=== PATIENT | male | born 1965 | race Caucasian/White ===

== ENCOUNTER → 2018-03-12 | Outpatient (CLI) | payer MEDICARE, MEDICAID | LOC: M PLARAD 15:18 | DX: M47.812 Spondylosis without myelopathy or radiculopathy, cervical region (principal) | CPT/HCPCS: 72141 ==

== ENCOUNTER → 2020-05-31 | Outpatient (CLI) | payer MEDICARE, MEDICAID ==
[~2020-05-31] MED LIST: ASPI-264 PO; PANT40TA29 PO; RAMI1CAP22 PO; SIMV40TA20 PO; TRAM50TA2 PO
--- NOTE | 2020-05-31 17:38 | REP ---
INDICATION: OTHER NON SPECIFIC ABNOMAL FINDINGS OF LUNG FIELD. COMPARISON: No prior studies available.. TECHNIQUE: Helical scanning is acquired. 3 mm axial images are generated. Coronal and sagittal MPR and coronal MIP images are generated. FINDINGS: Preliminary digital port crane operator radiograph shows a nodular opacity in the left perihilar region. Lungs are hyperinflated. There is some vascular calcification. No hilar or mediastinal mass or adenopathy is observed. Scattered normal sized mediastinal lymph nodes are seen. The adrenal glands are normal. Visualized upper abdominal structures are unremarkable. No pleural or pericardial effusion is seen. On lung window settings, there is a suspicious spiculated nodule in the left upper lobe perihilar region. This measures 1.8 x 1.9 x 2.3 cm in diameter. It has spiculated margins and abuts the major fissure. There is a perifissural nodule nearby in the left lower lobe however this appears benign. There is a fine pattern of subpleural emphysema and fibrosis in the lung tran bilaterally. No other significant lung nodule is seen. 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 IMPRESSION: Suspicious left upper lobe spiculated nodule. No evidence of adenopathy. COPD changes with the peripheral pattern of subpleural emphysema and fibrosis. Vascular calcification. <Electronically signed by Thad Gill > 05/31/20 [id number]
== END ==
LOC: M RAD 15:36
PROVIDERS: ATTEND Internal Medicine Pulmonary Disease
DX: R91.8 Other nonspecific abnormal finding of lung field (principal); J44.9 Chronic obstructive pulmonary disease, unspecified; J84.10 Pulmonary fibrosis, unspecified

== ENCOUNTER → 2020-06-04 | Day surgery (SDC) | payer MEDICARE, MEDICAID ==
[~2020-06-04] VITALS: Ht 180.3 cm; Wt 117.9 kg
[~2020-06-04] MED LIST changes: +ALBUTEROL SULFATE 2.5 MG/0.5 ML INH NEB SOLN INH ONE; +LIDOCAINE 2% 100MG/5ML SDV (FOR ANES.) As Ordered ONE; +LIDOCAINE 4% INJ 5ML AMP INH ONE; +LR 1,000 ML IV ONE; +MIDAZOLAM INJ 2MG/2ML VIAL (J2250 PER 1MG) As Ordered ONE; +ONDANSETRON 4MG/2ML VIAL As Ordered ONE; +ROCURONIUM BROMIDE 50 MG/5 ML VIAL As Ordered ONE; +dexameTHASONE 4 MG/ML 1ML VIAL (J1100 PER 1MG) As Ordered ONE; +fentaNYL 100 MCG/2 ML INJECTION (J3010) As Ordered ONE; +propofoL 200 MG/20 ML VIAL As Ordered ONE
[2020-06-04 10:25] VITALS: BP 142/70
== END | disposition home or self-care (01) ==
LOC: M SDC 10:16
PROVIDERS: ATTEND Internal Medicine Pulmonary Disease
DX: R91.8 Other nonspecific abnormal finding of lung field (principal); Z53.09 Procedure and treatment not carried out because of other contraindication; Z79.02 Long term (current) use of antithrombotics/antiplatelets

== ENCOUNTER 2020-06-27 08:05 | Day surgery (SDC) | payer MEDICARE, MEDICAID ==
[~2020-06-27] VITALS: Ht 180.3 cm; Wt 118.8 kg
[~2020-06-27 08:05] MED LIST changes: +CLOP75TA2; +IPRA0.00; +LIDOCAINE 1% MDV 20ML VIAL SQ PRN; -LIDOCAINE 2% 100MG/5ML SDV (FOR ANES.) As Ordered ONE; -LIDOCAINE 4% INJ 5ML AMP INH ONE; +LIDOCAINE 4% INJ 5ML AMP NEB ONE; -MIDAZOLAM INJ 2MG/2ML VIAL (J2250 PER 1MG) As Ordered ONE; -ONDANSETRON 4MG/2ML VIAL As Ordered ONE; -ROCURONIUM BROMIDE 50 MG/5 ML VIAL As Ordered ONE; +VENTAER; -dexameTHASONE 4 MG/ML 1ML VIAL (J1100 PER 1MG) As Ordered ONE; -fentaNYL 100 MCG/2 ML INJECTION (J3010) As Ordered ONE; -propofoL 200 MG/20 ML VIAL As Ordered ONE
--- OUTSIDE RECORDS SUMMARY | 2020-06-27 08:12 | CCD ---
Author Author [facility] Organization [facility] Address Unknown Phone Unavailable Care Team Providers Care Investigative Agent Name Role Phone Lore HAIR MD Unavailable Unavailable Lore HAIR MD Unavailable Unavailable Lore HARI MD Unavailable Unavailable Lore HAIR MD Unavailable Unavailable Lore HAIR MD Unavailable Unavailable Nicole SHUKLA MD Unavailable Unavailable Nicole SHUKLA MD Unavailable Unavailable Nicole SHUKLA MD Unavailable Unavailable Nicole SHUKLA MD Unavailable Unavailable Nicole SHUKLA MD Unavailable Unavailable Nicole SHUKLA MD Unavailable Unavailable Nicole SHUKLA MD Unavailable Unavailable Nicole SHUKLA MD Unavailable Unavailable Nicole SHUKLA MD Unavailable Unavailable Nicole SHUKLA MD Unavailable Unavailable Nicole SHUKLA MD Unavailable Unavailable Nicole SHUKLA MD Unavailable Unavailable Nicole SHUKLA MD Unavailable Unavailable Nicole SHUKLA MD Unavailable Unavailable Nicole SHUKLA MD Unavailable Unavailable Nicole SHUKLA MD Unavailable Unavailable Nicole SHUKLA MD Unavailable Unavailable Nicole SHUKLA MD Unavailable Unavailable Nicole SHUKLA MD Unavailable Unavailable Nicole SHUKLA MD Unavailable Unavailable Nicole SHUKLA MD Unavailable Unavailable Nicole SHUKLA MD Unavailable Unavailable Nicole SHUKLA MD Unavailable Unavailable Nicole SHUKLA MD Unavailable Unavailable Nicole SHUKLA MD Unavailable Unavailable Nicole SHUKLA MD Unavailable Unavailable Nicole SHUKLA MD Unavailable Unavailable Nicole SHUKLA MD Unavailable Unavailable Nicole SHUKLA MD Unavailable Unavailable Nicole SHUKLA MD Unavailable Unavailable Nicole SHUKLA MD Unavailable Unavailable Nicole SHUKLA MD Unavailable Unavailable Nicole SHUKLA MD Unavailable Unavailable Nicole SHUKLA MD Unavailable Unavailable Nicole SHUKLA MD Unavailable Unavailable Nicole SHUKLA MD Unavailable Unavailable Nicole SHUKLA MD Unavailable Unavailable Nicole SHUKLA MD Unavailable Unavailable Nicole SHUKLA MD Unavailable Unavailable Nicole SHUKLA MD Unavailable Unavailable Nicole SHUKLA MD Unavailable Unavailable Nicole SHUKLA MD Unavailable Unavailable Nicole SHUKLA MD Unavailable Unavailable Nicole SHUKLA MD Unavailable Unavailable Nicole SHUKLA MD Unavailable Unavailable FOSTER, KISHORE PA Unavailable Unavailable FOSTER, KISHORE PA Unavailable Unavailable FOSTER, KISHORE PA Unavailable Unavailable FOSTER, KISHORE PA Unavailable Unavailable FOSTER, KISHORE PA Unavailable Unavailable FOSTER, KISHORE PA Unavailable Unavailable FOSTER, KISHORE PA Unavailable Unavailable FOSTER, KISHORE PA Unavailable Unavailable FOSTER, KISHORE PA Unavailable Unavailable FOSTER, KISHORE PA Unavailable Unavailable FOSTER, KISHORE PA Unavailable Unavailable FOSTER, KISHORE PA Unavailable Unavailable FOSTER, KISHORE PA Unavailable Unavailable RONNI CHATMAN MD Unavailable Unavailable RONNI CHATMAN MD Unavailable Unavailable RONNI CHATMAN MD Unavailable Unavailable RONNI CHATMAN MD Unavailable Unavailable RONNI CHATMAN MD Unavailable Unavailable RONNI CHATMAN MD Unavailable Unavailable RONNI CHATMAN MD Unavailable Unavailable RONNI CHATMAN MD Unavailable Unavailable RONNI CHATMAN MD Unavailable Unavailable RONNI CHATMAN MD Unavailable Unavailable RONNI CHATMAN MD Unavailable Unavailable RONNI CHATMAN MD Unavailable Unavailable RONNI CHATMAN MD Unavailable Unavailable RONNI CHATMAN MD Unavailable Unavailable RONNI CHATMAN MD Unavailable Unavailable RONNI CHATMAN MD Unavailable Unavailable RONNI CHATMAN MD Unavailable Unavailable LURDESRONNI MD Unavailable Unavailable LURDESRONNI MD Unavailable Unavailable RONNI CHATMAN MD Unavailable Unavailable RONNI CHATMAN MD Unavailable Unavailable RONNI CHATMAN MD Unavailable Unavailable RONNI CHATMAN MD Unavailable Unavailable RONNI CHATMAN MD Unavailable Unavailable RONNI CHATMAN MD Unavailable Unavailable RONNI CHATMAN MD Unavailable Unavailable RONNI CHATMAN MD Unavailable Unavailable RONNI CHATMAN MD Unavailable Unavailable RONNI CHATMAN MD Unavailable Unavailable RONNI CHATMAN MD Unavailable Unavailable RONNI CHATMAN MD Unavailable Unavailable RONNI CHATMAN MD Unavailable Unavailable RONNI CHATMAN MD Unavailable Unavailable LURDESRONNI MD Unavailable Unavailable LURDESRONNI MD Unavailable Unavailable LURDES, RUDOLPH MD Unavailable Unavailable LURDES, RUDOLPH MD Unavailable Unavailable LURDES, RUDOLPH MD Unavailable Unavailable LURDES, RUDOLPH MD Unavailable Unavailable LURDES, RUDOLPH MD Unavailable Unavailable LURDES, RUDOLPH MD Unavailable Unavailable LURDES, RUDOLPH MD Unavailable Unavailable LURDES, RUDOLPH MD Unavailable Unavailable LURDES, RUDOLPH MD Unavailable Unavailable LURDES, RUDOLPH MD Unavailable Unavailable LURDES, RUDOLPH MD Unavailable Unavailable LURDES, RUDOLPH MD Unavailable Unavailable LURDES, RUDOLPH MD Unavailable Unavailable LURDES, RUDOLPH MD Unavailable Unavailable LURDES, RUDOLPH MD Unavailable Unavailable LURDES, RUDOLPH MD Unavailable Unavailable LURDES, RUDOLPH MD Unavailable Unavailable LURDES, RUDOLPH MD Unavailable Unavailable LURDES, RUDOLPH MD Unavailable Unavailable Sorge, C Michi MD Unavailable Unavailable Sorge, C Michi MD Unavailable Unavailable Sorge, C Michi MD Unavailable Unavailable Sorge, C Micih MD Unavailable Unavailable Sorge, C Michi MD Unavailable Unavailable Sorge, C Michi MD Unavailable Unavailable Sorge, C Michi MD Unavailable Unavailable Sorge, C Michi MD Unavailable Unavailable Sorge, C Michi MD Unavailable Unavailable Sorge, C Michi MD Unavailable Unavailable Sorge, C Michi MD Unavailable Unavailable Sorge, C Michi MD Unavailable Unavailable Sorge, C Michi MD Unavailable Unavailable Sorge, C Michi MD Unavailable Unavailable Sorge, C Michi MD Unavailable Unavailable Sorge, C Michi MD Unavailable Unavailable Sorge, C Michi MD Unavailable Unavailable Sorge, C Michi MD Unavailable Unavailable Sorge, C Michi MD Unavailable Unavailable Sorge, C Michi MD Unavailable Unavailable Sorge, C Michi MD Unavailable Unavailable Corona, E Don DO Unavailable Unavailable Corona, E Don DO Unavailable Unavailable Corona, E Don DO Unavailable Unavailable Corona, E Don DO Unavailable Unavailable Corona, E Don DO Unavailable Unavailable Corona, E Don DO Unavailable Unavailable Corona, E Don DO Unavailable Unavailable Corona, E Don DO Unavailable Unavailable Corona, E Don DO Unavailable Unavailable Corona, E Don DO Unavailable Unavailable Corona, E Don DO Unavailable Unavailable Corona, E Don DO Unavailable Unavailable Corona, E Don DO Unavailable Unavailable Corona, E Don DO Unavailable Unavailable Corona, E Don DO Unavailable Unavailable Corona, E Don DO Unavailable Unavailable Corona, E Don DO Unavailable Unavailable Corona, E Don DO Unavailable Unavailable Corona, E Don DO Unavailable Unavailable Corona, E Don DO Unavailable Unavailable Corona, E Don DO Unavailable Unavailable Corona, E Don DO Unavailable Unavailable Corona, E Don DO Unavailable Unavailable SEARS, A FRANK DO Unavailable Unavailable SEARS, A FRANK DO Unavailable Unavailable SEARS, A FRANK DO Unavailable Unavailable SEARS, A FRANK DO Unavailable Unavailable SEARS, A FRANK DO Unavailable Unavailable SEARS, A FRANK DO Unavailable Unavailable SEARS, A FRANK DO Unavailable Unavailable SEARS, A FRANK DO Unavailable Unavailable SEARS, A FRANK DO Unavailable Unavailable SEARS, A FRANK DO Unavailable Unavailable SEARS, A FRANK DO Unavailable Unavailable SEARS, A FRANK DO Unavailable Unavailable SEARS, A FRANK DO Unavailable Unavailable SEARS, A FRANK DO Unavailable Unavailable SEARS, A FRANK DO Unavailable Unavailable SEARS, A FRANK DO Unavailable Unavailable SEARS, A FRANK DO Unavailable Unavailable SEARS, A FRANK DO Unavailable Unavailable SEARS, A FRANK DO Unavailable Unavailable SEARS, A FRANK DO Unavailable Unavailable SEARS, A FRANK DO Unavailable Unavailable SEARS, A FRANK DO Unavailable Unavailable SEARS, A FRANK DO Unavailable Unavailable SEARS, A FRANK DO Unavailable Unavailable SEARS, A FRANK DO Unavailable Unavailable SEARS, A FRANK DO Unavailable Unavailable SEARS, A FRANK DO Unavailable Unavailable SEARS, A FRANK DO Unavailable Unavailable SEARS, A FRANK DO Unavailable Unavailable SEARS, A FRANK DO Unavailable Unavailable SEARS, A FRANK DO Unavailable Unavailable SEARS, A FRANK DO Unavailable Unavailable SEARS, A FRANK DO Unavailable Unavailable SEARS, A FRANK DO Unavailable Unavailable SEARS, A FRANK DO Unavailable Unavailable SEARS, A FRANK DO Unavailable Unavailable SEARS, A FRANK DO Unavailable Unavailable SEARS, A FRANK DO Unavailable Unavailable SEARS, A FRANK DO Unavailable Unavailable SEARS, A FRANK DO Unavailable Unavailable SEARS, A FRANK DO Unavailable Unavailable SEARS, A FRANK DO Unavailable Unavailable SEARS, A FRANK DO Unavailable Unavailable SEARS, A FRANK DO Unavailable Unavailable SEARS, A FRANK DO Unavailable Unavailable DR MD AGUSTINA KAM Unavailable Unavailable Re-disclosure Warning The records that you are about to access may contain information from federally-assisted alcohol or drug abuse programs. If such information is present, then the following federally mandated warning applies: This information has been disclosed to you from records protected by federal confidentiality rules (42 CFR part 2). The federal rules prohibit you from making any further disclosure of this information unless further disclosure is expressly permitted by the written consent of the person to whom it pertains or as otherwise permitted by 42 CFR part 2. A general authorization for the release of medical or other information is NOT sufficient for this purpose. The Federal rules restrict any use of the information to criminally investigate or prosecute any alcohol or drug abuse patient.The records that you are about to access may contain highly sensitive health information, the redisclosure of which is protected by Article 27-F of the [facility] Public Health law. If you continue you may have access to information: Regarding HIV / AIDS; Provided by facilities licensed or operated by the [facility] Office of Mental Health; or Provided by the [facility] Office for People With Developmental Disabilities. If such information is present, then the following [facility] mandated warning applies: This information has been disclosed to you from confidential records which are protected by state law. State law prohibits you from making any further disclosure of this information without the specific written consent of the person to whom it pertains, or as otherwise permitted by law. Any unauthorized further disclosure in violation of state law may result in a fine or long-term sentence or both. A general authorization for the release of medical or other information is NOT sufficient authorization for further disc losure. Allergies and Adverse Reactions Type Description Substance Reaction Status Data Source(s ) Miscellaneous allergy No Known Environmental Allergies No Kn own Environmental Allergies [facility] l Miscellaneous allergy No Known Food Allergies No Known Food Allergies [facility] Drug allergy CYCLOBENZAPRINE CYCLOBENZAPRINE BLUR VISION MODERATE [facility] Miscellaneous allergy No Known Drug Allergies No Known Drug Allergies [facility] Encounters Encounter Providers Location Date Indications Data Source(s ) Outpatient Attender: NONI Calderon DAdmitter: NONI HAIR MDConsultant: DR CAROLINA KAM 008 06/22/2020 10:32:00 AM EST - 06/22/2020 10:32:00 AM EST Screening [facility] Screening Patient discharged. Outpatient Attender: RONNI CHATMAN MDConsultant: RONNI Gloria JP-SJP 06/18/2020 08:49:47 AM EST - 06/18/2020 11:50:[address] [facility] Outpatient Referrer: RONNI [email or web address].[email or web address] 06/18/2020 12:00:00 AM EST [facility] Outpatient Attender: FRANK TURNER DOAdmit ter: FRANK TURNER DOConsultant: DR CAROLINA KAM 008 05/30/2020 01:34:00 PM EST - 05/30/2020 01:34:00 PM EST Screening test [facility] Screening test Outpatient Attender: Michi De La Rosa mitter: Michi Martinez MDReferrer: Michi Martinez MDConsultant: DR CAROLINA KAM 05/23/2020 08:04:00 A M EST - 05/23/2020 08:30:00 AM EST Health check up [facility] Health check up Patient discharged. Outpatient Attender: FRANK Edwards/Chaparrita/Andres/Manny 05/21/2020 12:00:00 PM EST [facility] Emergency Attender: KISHORE HUTCHISON BRANDON ttender: DR FIGUEROA TRANAdmitter: KISHORE HUTCHISON PAReferrer: KISHORE HUTCHISON PAConsultant: DR CAROLINA KAM [id number] 05/11/2020 04:36:00 PM EST - 05/11/2020 07:30:00 PM EST PATIENT STATES HE THINKS HE'S HAVING A S [facility] PATIENT STATES HE THINKS HE'S HAVING A S Patient discharged. Outpatient Attender: Michi De La Rosa mitter: Michi Martinez MDConsultant: DR CAROLINA KAM 008 05/03/2020 10:20:00 AM EST - 05/03/2020 10:20:00 AM EST Radiological examination [facility] Radiological examination Outpatient Attender: Michi De La Rosa mitter: Michi Martinez MDReferrer: Michi Martinez MDConsultant: DR CAROLINA KAM 008 04/30/2020 02:13:00 P M EST - 04/30/2020 02:13:00 PM EST Lab test [facility] Lab test Outpatient Attender: Michi De La Rosa mitter: Michi Martinez MDReferrer: Michi Martinez MDConsultant: DR CAROLINA KAM [id number] 04/30/2020 12:58:00 P M EST - 04/30/2020 01:40:00 PM EST Health check up [facility] Health check up Patient discharged. Outpatient Attender: Don Walton mitter: Don Jeter DOReferrer: Don Jeter DOConsultant: REGINA SHUKLA MD 06/30/2019 09:08:0 0 AM EST - 06/30/2019 09:50:00 AM EST Current use of medication [facility] Current use of medication Patient discharged. Outpatient Attender: NONI Calderon DAdmitter: NONI HAIR MDConsultant: DR CAROLINA KAM 06/15/2000 02:26:00 PM EST Screening test [facility] Screening test Admission cancelled. Disregard status an d admitted date. Outpatient Attender: REGINA SHUKLA MDAdmi tter: REGINA SHUKLA MDReferrer: REGINA SHUKLA MD 06/15/1999 01:42:00 PM EST [facility] Medications Medication Brand Name Start Date Product Form Dose Route Admi nistrative Instructions Pharmacy Instructions Status Indications Reaction Description Data Source(s) Albuterol 0.833 MG/ML / Ipratropium Brom orlin 0.167 MG/ML Inhalant Solution ipratropium-albuterol (DUO-NEB) 0.5-2.5 mg/mL nebulizer ipratropium-albuterol (DUO-NEB) 0.5-2.5 mg/mL nebulizer 06/11/2020 12:00:00 AM EST active USE ONE VIAL IN THE NEBULIZER EVERY 6 HOURS NEEDED [facility] albuterol (PROVENTIL HFA;VENTOLIN HFA) 108 (90 Base) M CG/ACT inhaler 4880-9094-20 06/11/2020 12:00:00 AM EST activ e INHALE 2 PUFFS BY MOUTH EVERY FOUR HOURS NEEDED [facility] Metoprolol Tartrate 25 MG Oral Tablet me toprolol tartrate (LOPRESSOR) 25 MG tablet metoprolol tartrate (LOPRESSOR) 25 MG tablet 06/05/2020 12:0 0:00 AM EST 0.5 mg Oral active Take 0.5 mg by m outh 2 (two) times a day [facility] clopidogrel 75 MG Oral Tablet clopidogrel (PLAVIX) 75 MG tablet clopidogrel (PLAVIX) 75 MG tablet 06/04/2020 12:00:00 AM EST 75 mg Oral active Take 75 mg by mouth daily [facility] Ramipril 2.5 MG Oral Capsule ramipril (ALTACE) 2.5 MG capsule ramipril (ALTACE) 2.5 MG capsule 06/04/2020 12:00:00 AM EST 2.5 mg Oral act jack Take 2.5 mg by mouth daily [facility] Simvastatin 80 MG Oral Tablet simvastatin (ZOCOR) 80 M G tablet simvastatin (ZOCOR) 80 MG tablet 06/04/2020 12:00:00 AM EST 80 mg Oral active Take 80 mg by mouth [facility] pantoprazole 40 MG Delayed Release Oral Tablet pantoprazole (PROTONIX) 40 MG tablet pantoprazole (PROTONIX) 40 MG tablet 05/16/2020 12:00:00 AM EST 40 mg Oral active Take 40 mg by mouth daily [facility] pantoprazole 40 MG Delayed Release Oral Tablet [Protonix] Protonix 40MG Oral Tablet, Enteric Coated Protonix 40MG Oral Tablet, Enteric Coated 05/16/2020 12:00:00 AM EST 1 TABLET ORAL active Protonix 40MG Oral Tablet, Enteric Coated 05/16/2020 Unknown ORAL DAILY 1 TABLET [id number] [facility] pantoprazole 40 MG Delayed Release Oral Tablet [Protonix] Protonix 40MG Oral Tablet, Enteric Coated Protonix 40MG Oral Tablet, Enteric Coated 05/16/2020 12:00:00 AM EST 1 TABLET ORAL active Protonix 40MG Oral Tablet, Enteric Coated 05/16/2020 Unknown ORAL DAILY 1 TABLET [id number] [facility] Referral 05/07/2020 12:00:00 AM EST 1 TABLET ORAL activ e Referral 05/07/2020 Unknown ORAL 1 TABLET [facility] Referral 05/07/2020 12:00:00 AM EST 1 TABLET ORAL activ e Referral 05/07/2020 Unknown ORAL 1 TABLET [facility] CT of chest 05/02/2020 12:00:00 AM EST [address] of chest 05/02/2020 Unknown ORAL 1 TABLET [facility] Cholecalciferol 2000 UNT Oral Capsule Vi tamin D 2000 IU Oral Capsule, Liquid Filled Vitamin D 2000 IU Oral Capsule, Liquid Filled 05/02/2020 12: 00:00 AM EST 1 CAPSULE BY MOUTH active Vitamin D 200 0 IU Oral Capsule, Liquid Filled 05/02/2020 Unknown BY MOUTH 1 CAPSULE [id number] [facility] Cholecalciferol 2000 UNT Oral Capsule Vi tamin D 2000 IU Oral Capsule, Liquid Filled Vitamin D 2000 IU Oral Capsule, Liquid Filled 05/02/2020 12: 00:00 AM EST 1 CAPSULE BY MOUTH active Vitamin D 200 0 IU Oral Capsule, Liquid Filled 05/02/2020 Unknown BY MOUTH 1 CAPSULE [id number] [facility] 05/02/2020 12:00:00 AM EST [address] [facility] 05/02/2020 [facility] 2000 UNT Oral Capsule Vi tamin D 2000 IU Oral Capsule, Liquid Filled Vitamin D 2000 IU Oral Capsule, Liquid Filled 05/02/2020 12: 00:00 AM EST 1 CAPSULE BY MOUTH active Vitamin D 200 0 IU Oral Capsule, Liquid Filled 05/02/2020 Unknown BY MOUTH 1 CAPSULE [id number] [facility] CT of chest 05/02/2020 12:00:00 AM EST [address] of chest 05/02/2020 Unknown ORAL 1 TABLET [facility] Clotrimazole 10 MG/ML Topical Cream Clotrimazole 1% To pical application Cream Clotrimazole 1% Topical application Cream 04/30/2020 12:00:00 AM EST 1 pea sized TOPICAL active Clotrimazole 1% Topical application Cream 04/30/2020 Unknown TOPICAL 1 pea sized [id number] [facility] tizanidine 4 MG Oral Tablet tiZANidine HCl 4MG Oral Ta blet tiZANidine HCl 4MG Oral Tablet 04/30/2020 12:00:00 AM EST 1 TABLET BY MOUTH ac tive tiZANidine HCl 4MG Oral Tablet 04/30/2020 Unknown BY MOUTH 1 TABLET [id number] [facility] tramadol hydrochloride 50 MG Oral Tablet traMADol (ULT TITI) 50 MG tablet traMADol (ULTRAM) 50 MG tablet 04/30/2020 12:00:00 AM EST 50 mg Oral active Take 50 mg by mouth as needed [facility] Clotrimazole 10 MG/ML Topical Cream Clotrimazole 1% To pical application Cream Clotrimazole 1% Topical application Cream 04/30/2020 12:00:00 AM EST 1 pea sized TOPICAL active Clotrimazole 1% Topical application Cream 04/30/2020 Unknown TOPICAL 1 pea sized 607303 [facility] tizanidine 4 MG Oral Tablet tiZANidine HCl 4MG Oral Ta blet tiZANidine HCl 4MG Oral Tablet 04/30/2020 12:00:00 AM EST 1 TABLET BY MOUTH ac tive tiZANidine HCl 4MG Oral Tablet 04/30/2020 Unknown BY MOUTH 1 TABLET [id number] [facility] tizanidine 4 MG Oral Tablet tiZANidine HCl 4MG Oral Ta blet tiZANidine HCl 4MG Oral Tablet 04/30/2020 12:00:00 AM EST 1 TABLET BY MOUTH ac tive tiZANidine HCl 4MG Oral Tablet 04/30/2020 Unknown BY MOUTH 1 TABLET 425402 [facility] Clotrimazole 10 MG/ML Topical Cream Clotrimazole 1% To pical application Cream Clotrimazole 1% Topical application Cream 04/30/2020 12:00:00 AM EST 1 pea sized TOPICAL active Clotrimazole 1% Topical application Cream 04/30/2020 Unknown TOPICAL 1 pea sized [id number] [facility] tramadol hydrochloride 50 MG Oral Tablet traMADol HCl 50MG Oral Tablet traMADol HCl 50MG Oral Tablet 04/30/2020 12:00:00 AM EST 1 TABLET BY MOUTH active traMADol HCl 50MG Oral Tablet 04/30/2020 Unknown BY MOUTH 1 TABLET [id number] [facility] tramadol hydrochloride 50 MG Oral Tablet traMADol HCl 50MG Oral Tablet traMADol HCl 50MG Oral Tablet 04/30/2020 12:00:00 AM EST 1 TABLET BY MOUTH active traMADol HCl 50MG Oral Tablet 04/30/2020 Unknown BY MOUTH 1 TABLET [id number] [facility] tramadol hydrochloride 50 MG Oral Tablet traMADol HCl 50MG Oral Tablet traMADol HCl 50MG Oral Tablet 04/30/2020 12:00:00 AM EST 1 TABLET BY MOUTH active traMADol HCl 50MG Oral Tablet 04/30/2020 Unknown BY MOUTH 1 TABLET [id number] [facility] 200 ACTUAT Albuterol 0.09 MG/ACTUAT Mete red Dose Inhaler [ProAir] ProAir HFA 0.09MG/1Actuation Inhalation Suspension ProAir HFA 0.09MG/1Actuation Inhalation Suspension 04/18/2020 12:00:00 AM EST 2 PUFFS INHALATION ac tive ProAir HFA 0.09MG/1Actuation Inhalation Suspension 04/18/2020 Unknown INHALATION NEEDED EVERY 4 HR 2 PUFFS [id number] [facility] 200 ACTUAT Albuterol 0.09 MG/ACTUAT Mete red Dose Inhaler [ProAir] ProAir HFA 0.09MG/1Actuation Inhalation Suspension ProAir HFA 0.09MG/1Actuation Inhalation Suspension 04/18/2020 12:00:00 AM EST 2 PUFFS INHALATION ac tive ProAir HFA 0.09MG/1Actuation Inhalation Suspension 04/18/2020 Unknown INHALATION NEEDED EVERY 4 HR 2 PUFFS [id number] [facility] 200 ACTUAT Albuterol 0.09 MG/ACTUAT Mete red Dose Inhaler [ProAir] ProAir HFA 0.09MG/1Actuation Inhalation Suspension ProAir HFA 0.09MG/1Actuation Inhalation Suspension 04/18/2020 12:00:00 AM EST 2 PUFFS INHALATION ac tive ProAir HFA 0.09MG/1Actuation Inhalation Suspension 04/18/2020 Unknown INHALATION NEEDED EVERY 4 HR 2 PUFFS [id number] [facility] Simvastatin 80 MG Oral Tablet Simvastatin 80MG Oral Ta blet Simvastatin 80MG Oral Tablet 03/05/2020 12:00:00 AM EDT 1 TABLET ORAL active Simvastatin 80MG Oral Tablet 03/05/2020 Unknown ORAL AT BEDTIME 1 TABLET [id number] [facility] Simvastatin 80 MG Oral Tablet Simvastatin 80MG Oral Ta blet Simvastatin 80MG Oral Tablet 03/05/2020 12:00:00 AM EDT 1 TABLET ORAL active Simvastatin 80MG Oral Tablet 03/05/2020 Unknown ORAL AT BEDTIME 1 TABLET [id number] [facility] clopidogrel 75 MG Oral Tablet Clopidogrel 75MG Oral Ta blet Clopidogrel 75MG Oral Tablet 03/05/2020 12:00:00 AM EDT 1 TABLET ORAL active Clopidogrel 75MG Oral Tablet 03/05/2020 Unknown ORAL DAILY 1 TABLET [id number] [facility] Ramipril 2.5 MG Oral Capsule Ramipril 2.5MG Oral Capsu le Ramipril 2.5MG Oral Capsule 03/05/2020 12:00:00 AM EDT 1 CAPSULE ORAL active Ramipril 2.5MG Oral Capsule 03/05/2020 Unknown ORAL DAILY 1 [facility]SULE 277151 [facility] MG Oral Tablet Clopidogrel 75MG Oral Ta blet Clopidogrel 75MG Oral Tablet 03/05/2020 12:00:00 AM EDT 1 TABLET ORAL active Clopidogrel 75MG Oral Tablet 03/05/2020 Unknown ORAL DAILY 1 TABLET [id number] [facility] Ramipril 2.5 MG Oral Capsule Ramipril 2.5MG Oral Capsu le Ramipril 2.5MG Oral Capsule 03/05/2020 12:00:00 AM EDT 1 CAPSULE ORAL active Ramipril 2.5MG Oral Capsule 03/05/2020 Unknown ORAL DAILY 1 CAPSULE [id number] [facility] Ramipril 2.5 MG Oral Capsule Ramipril 2.5MG Oral Capsu le Ramipril 2.5MG Oral Capsule 03/05/2020 12:00:00 AM EDT 1 CAPSULE ORAL active Ramipril 2.5MG Oral Capsule 03/05/2020 Unknown ORAL DAILY 1 CAPSULE [id number] [facility] clopidogrel 75 MG Oral Tablet Clopidogrel 75MG Oral Ta blet Clopidogrel 75MG Oral Tablet 03/05/2020 12:00:00 AM EDT 1 TABLET ORAL active Clopidogrel 75MG Oral Tablet 03/05/2020 Unknown ORAL DAILY 1 TABLET [id number] [facility] Simvastatin 80 MG Oral Tablet Simvastatin 80MG Oral Ta blet Simvastatin 80MG Oral Tablet 03/05/2020 12:00:00 AM EDT 1 TABLET ORAL active Simvastatin 80MG Oral Tablet 03/05/2020 Unknown ORAL AT BEDTIME 1 TABLET [id number] [facility] Albuterol 0.833 MG/ML / Ipratropium Brom orlin 0.167 MG/ML Inhalant Solution Ipratropium [place]-Albuterol Sulfate 0.5MG/3ML-3MG/3ML Inhalation Solution Ipratropium [place]-Albuterol Sulfate 0.5MG/3ML-3MG/3ML Inhalation Solution 01/27/2020 12:00:00 AM EDT 1 nebule INHALATION active Ipratropium [place]-Albuterol Sulfate 0.5MG/3ML-3MG/3ML Inhalation Solution 01/27/2020 Unknown INHALATION NEEDED EVERY 6 HR 1 nebule [id number] [facility] Albuterol 0.833 MG/ML / Ipratropium Brom orlin 0.167 MG/ML Inhalant Solution Ipratropium [place]-Albuterol Sulfate 0.5MG/3ML-3MG/3ML Inhalation Solution Ipratropium [place]-Albuterol Sulfate 0.5MG/3ML-3MG/3ML Inhalation Solution 01/27/2020 12:00:00 AM EDT 1 nebule INHALATION active Ipratropium [place]-Albuterol Sulfate 0.5MG/3ML-3MG/3ML Inhalation Solution 01/27/2020 Unknown INHALATION NEEDED EVERY 6 HR 1 nebule [id number] [facility] Albuterol 0.833 MG/ML / Ipratropium Brom orlin 0.167 MG/ML Inhalant Solution Ipratropium [place]-Albuterol Sulfate 0.5MG/3ML-3MG/3ML Inhalation Solution Ipratropium [place]-Albuterol Sulfate 0.5MG/3ML-3MG/3ML Inhalation Solution 01/27/2020 12:00:00 AM EDT 1 nebule INHALATION active Ipratropium [place]-Albuterol Sulfate 0.5MG/3ML-3MG/3ML Inhalation Solution 01/27/2020 Unknown INHALATION NEEDED EVERY 6 HR 1 nebule [id number] [facility] pantoprazole 40 MG Delayed Release Oral Tablet [Protonix] Protonix 40MG Oral Tablet, Enteric Coated Protonix 40MG Oral Tablet, Enteric Coated 11/30/2019 12:00:00 AM EDT 1 TABLET ORAL active Protonix 40MG Oral Tablet, Enteric Coated 11/30/2019 Unknown ORAL DAILY 1 TABLET [id number] [facility] Metoprolol Tartrate 25 MG Oral Tablet Metoprolol Tartr ate 25MG Oral Tablet Metoprolol Tartrate 25MG Oral Tablet 08/30/2019 12:00:00 AM EDT 0 T ABLET ORAL active Metoprolol Tartrate 25MG Oral Tablet Unknown ORAL TWICE A DAY 239409 RxNorm Yovani Katz [facility] spital Metoprolol Tartrate 25 MG Oral Tablet Metoprolol Tartr ate 25MG Oral Tablet Metoprolol Tartrate 25MG Oral Tablet 08/30/2019 12:00:00 AM EDT 0 T ABLET ORAL active Metoprolol Tartrate 25MG Oral Tablet Unknown ORAL TWICE A DAY 123171 RxNorm Yovani Katz [facility] spital Metoprolol Tartrate 25 MG Oral Tablet Metoprolol Tartr ate 25MG Oral Tablet Metoprolol Tartrate 25MG Oral Tablet 08/30/2019 12:00:00 AM EDT 0 T ABLET ORAL active Metoprolol Tartrate 25MG Oral Tablet Unknown ORAL TWICE A DAY [id number] RxNorm Yovani Abdul spital Insurance Providers Payer name Policy type / Coverage type Policy ID Covered republican ID Covered republican's relationship to fung Policy Fung Plan Information EMEDNY [id number] SP [id number] MEDICARE [id number] SP [id number] MEDICARE-OP [id number] undefined [id number] MEDICAID [facility]-OP [id number] undefined [id number] MEDICARE-CLINIC [id number] undefined [id number] MEDICAID [facility] [id number] undef ined [id number] MEDICARE [id number] Kayleigh [id number] R86 MEDICARE [id number] MEDICAID -RECURRING [id number] u ndefined [id number] MEDICAID [id number] MEDICARE [id number] S [id number] MEDICARE -RECURRING [id number] undefined [id number] MEDICARE-CLINIC [id number] undefined [id number] MEDICAID [id number] SP [id number] MEDICARE [id number] SP [id number] MEDICAID [id number] SP [id number] MEDICAID -PHYSICIAN [id number] MEDICAID [id number] 18 [id number] MEDICARE PART A [facility] [id number] 18 [id number] Medicaid Commercial [id number] Self [id number] Medicare Part A [place] Primary [id number] Self [id number] MEDICARE-OP [id number] undefined [id number] MEDICARE [id number] SP [id number] A Problems, Conditions, and Diagnoses Code Display Name Description Problem Type Effective Dates Data Source(s) K21.9 GERD (gastroesophageal reflux disease) G ERD (gastroesophageal reflux disease) [id number] 06/18/2020 12:00:00 AM EST [facility] Z01.818 Preop examination Preop examination [id number] 06/18/2020 12:00:00 AM [facility] [id number] Solitary nodule of lung Solitary nodule of lung Proble m 05/21/2020 12:00:00 AM EST [facility] ([facility], ) Idiopathic pulmonary fibrosis Idiopathic pulmonary fib rosis Problem 05/21/2020 12:00:00 AM EST [facility] ([facility], ) Nicotine dependence, cigarettes, with ot her nicotine-induced disorders Nicotine dependence, cigarettes, with other nicotine-induced disorders Problem 05/21/2020 12:00:00 AM EST [facility] ([facility], ) [id number] Ex-smoker Ex-smoker Problem 05/21/2020 12:00:00 AM ES T [facility] ([facility], ) [id number] Abnormal findings on diagnostic imaging of lung Abnormal findings on diagnostic imaging of lung Problem 05/21/2020 12:00:00 AM EST [facility] ([facility], ) [id number] Encounter for observation fo r suspected exposure to other biological agents ruled out Encounter for observation for suspected exposure to other biological agents ruled out Diagnosis 06/22/2020 10:32:00 AM EST [facility] R06.00 Dyspnea, unspecified Dyspnea, unspecified Diagnosis 06/18/2020 08:49:47 AM EST [facility] K21.9 Gastro-esophageal reflux disease without esophagitis Gastro-esophageal reflux disease without Diagnosis 06/18/2020 08:49:47 AM EST [facility] E66.9 Obesity, unspecified Obesity, unspecified Diagnosis 06/18/2020 08:49:47 AM [facility] J44.9 Chronic obstructive pulmonary disease, u nspecified Chronic obstructive pulmonary disease, u Diagnosis 06/18/2020 08:49:47 AM [facility] I10 Essential (primary) hypertension Essential (primary) h ypertension Diagnosis 06/18/2020 08:49:47 AM EST [facility] E78.5 Hyperlipidemia, unspecified Hyperlipidemia, unspecifie d Diagnosis 06/18/2020 08:49:47 AM [facility] I25.10 Atherosclerotic heart diseas e of [place] coronary artery without angina pectoris Atherosclerotic heart disease of [place] Diagnosis 06/18/2020 08:49:47 AM [facility] Z01.818 Encounter for other preprocedural examin ation Encounter for other preprocedural examin Diagnosis 06/18/2020 08:49:47 AM [facility] E785 Hyperlipidemia, unspecified Hyperlipidemia, unspecifie d Diagnosis 05/23/2020 08:04:00 AM [facility] I10 Essential (primary) hypertension Essential (primary) h ypertension Diagnosis 05/23/2020 08:04:00 AM [facility] R911 Solitary pulmonary nodule Solitary pulmonary nodule Di agnosis 05/23/2020 08:04:00 AM [facility] I2510 Atherosclerotic heart diseas e of [place]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 Diagnosis 05/23/2020 08:04:00 AM [facility] R079 Chest pain, unspecified Chest pain, unspecified Diagno sis 05/23/2020 08:04:00 AM [facility] S53602 Left upper quadrant abdominal tenderness Left upper quadrant abdominal tenderness Diagnosis 05/23/2020 08:04:00 AM [facility] 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 Diagnosis 05/11/2020 02:07:00 PM [facility] R202 Paresthesia of skin Paresthesia of skin Diagnosis 1 07/11/2019 02:07:00 PM [facility] M4727 Other spondylosis with radiculopathy, sunday mbosacral region Other spondylosis with radiculopathy, lumbosacral region Diagnosis 05/11/2020 02:07:00 PM [facility] M4722 Other spondylosis with radiculopathy, ce rvical region Other spondylosis with radiculopathy, cervical region Diagnosis 05/11/2020 02:07:[address] [facility] R531 Weakness Weakness Diagnosis 05/11/2020 02:07:00 PM [facility] Z125 Encounter for screening for malignant ne oplasm of prostate Encounter for screening for malignant neoplasm of prostate Diagnosis 0 02:13:00 PM [facility] M130 Polyarthritis, unspecified Polyarthritis, unspecified Diagnosis 04/30/2020 02:13:00 PM [facility] Z1389 Encounter for screening for other disord er Encounter for screening for other disorder Diagnosis 04/30/2020 12:58:00 PM [facility] J449 Chronic obstructive pulmonary disease, u nspecified Chronic obstructive pulmonary disease, unspecified Diagnosis 04/30/2020 12:58:00 PM [facility] P98849 Pain in left shoulder Pain in left shoulder Diagnosis 04/30/2020 12:58:00 PM [facility] R0789 Other chest pain Other chest pain Diagnosis 04/30/2020 12 :58:00 PM [facility] R0789 R0789 Diagnosis 04/30/2020 12:58:00 PM [facility] F1210 Cannabis abuse, uncomplicated Cannabis abuse, uncompli cated Diagnosis 06/30/2019 09:08:00 AM [facility] G4700 Insomnia, unspecified Insomnia, unspecified Diagnosis 06/30/2019 09:08:00 AM [facility] F4323 Adjustment disorder with mixed anxiety a nd depressed mood Adjustment disorder with mixed anxiety and depressed mood Diagnosis 020 09:08:00 AM [facility] J0190 Acute sinusitis, unspecified Acute sinusitis, unspecif ied Diagnosis 06/30/2019 09:08:00 AM [facility] Surgeries/Procedures Procedure Description Date Indications Data Source(s) ECG ROUTINE ECG W/LEAST 12 LDS W/I&R POCT AMB EKG Routine 06/18/2020 10:24 AM EST Preop examination Coronary artery disease involving [place] heart without angina pectoris, unspecified vessel or lesion type Benign essential hypertension 06/18/2020 03:24:00 PM EST Kenny ign essential hypertensionCoronary artery disease involving [place] heart without angina pectoris, unspecified vessel or lesion typePreop examination [facility] Benign essential hypertension Coronary artery disease involving [place] heart without angina pectoris, unspecified vessel or lesion type Preop examination Spirometry 05/21/2020 12:00:00 AM EST Yumiko MELONY ([facility], ) Results ID Date Data Source [id number] 06/22/2020 11:00:00 AM EST [facility] Name Value Range Interpretation Code Description Data Nataly rce(s) Supporting Document(s) SARS coronavirus 2 RNA Not Detected [facility] This lab was ordered by [facility] and reported by [facility]. ID Date Data Source [id number] 06/22/2020 11:00:00 AM EST [facility] Name Value Range Interpretation Code Description Data Nataly rce(s) Supporting Document(s) [facility] _S[facility]V2 [id number], NAAReport ed: 06/23/2020 20:05 Status=F RESULT FLAG RANGE UNITS SC --SARS-CoV-2, ANGELLA Not Detected Not Detected [facility] 06/23/20.2005.rfl.COMPLETE.LCTRThis nucleic acid amplification test was developed and its performancecharacteristics determined by [employer]. Nucleic acidamplification tests include PCR and TMA. This test has not been FDAcleared or approved. This test has been authorized by FDA under anEmergency Use Authorization (EUA). This test is only authorized forthe duration of time the declaration that circumstances existjustifying the authorization of the emergency use of in vitrodiagnostic tests for detection of SARS-CoV-2 virus and/or diagnosisof COVID-19 infection under section 564(b)(1) of the Act, 21 U. S.C.360bbb-3(b) (1), unless the authorization is terminated or revokedsooner.When diagnostic testing is negative, the possibility of a falsenegative result should be considered in the context of a patient'srecent exposures and the presence of clinical signs and symptomsconsistent with COVID- 19. An individual without symptoms of COVID-19and who is not shedding SARS-CoV-2 virus would expect to have anegative (not detected) result in this assay.NO MATCH FOUND IN SITE CODE REF TABLE FOR [facility] ID Date Data Source [id number] 06/18/2020 09:54:10 PM EST [facility] Name Value Range Interpretation Code Description Data Nataly rce(s) Supporting Document(s) &PDF [facility] ADUXFd2gGlWIWhAq56/YJTceJETdl0AlVHvxUAp7DOefAYJeG5GcaOgxHGDUC8LEY7XGM3ygEsGEYeuy 0b3 [file] 2Ti/xTTd1TE3lpUYf2GGo4/computer operations supervisor/QT8XGUTKSzxFADwY VEJ75CbPLKqUWsDcCMTmEyVP+rZs1CXRLIrDFxERlEZwuYW2CQhe3Y3/WI/lhytT6PofwSkDSpiJzGW+ wD5O6yBwr5bfX2EmFMluN7W12vSwaskK2tzuK8l2fmXNnMyL2SCyQ46KUpDRvE+D2/g62Ka1VdGNTJvG AtwQQYUxjXVco8J9s7ay80j69ABeY6MPXfkv0a4q9P 6ksP9P70QzjL1SPXoinwU7vTgG8UQNx98Aax4EpEzlOg8gVCoe749Y3pIcFGAd9JvFLN+qPEyWHpxhGI ZhGMYK+QhGBUh0LZgfvmTimLYvWK4WOyYkAA7ukn9CMfKgTILmDmmZJfa8CBlhDT2XcDWgK8rDZzciZ8 GqM7UssCobHI3PgVDvGQ1YYD0aP9xzRoWpPch4h8Fq qnZphVQfqyEwxKI9L0LlaH5iG6ZbI9MpLJI5cSTsE9OihF7HzEM3zKYuUBSwVHBwR1j4BRP6XQ5QDO7h eHmtTeN2Xs1MdBx6SEEuOc7OiPC4FTZxD86sKT6STz7+XXkddKFgAV1ERtaA1A85GKXZHz6oIlgeUSxy dAQOCBygkwMCAgdIEKATAQEBAYEDAiRGJwcEBASWCJ [file] ICAgICAgICAgICAgICAgICAgICAgICAgICAgICAgICAgICAgICAgICAgICAgICAgICAgICAgICAgICAg ICAgICAgICAgICAgICAgICAgICAgICAgICAgICAgIA 0KICAgICAgICAgICAgICAgICAgICAgICAgICAgICAgICAgICAgICAgICAgICAgICAgICAgICAgICAgIC XbKHEqDXNlMXEhVIRsUFMwOYMhMEMcOJDmFOGwNBDcNPQjUZLpOLHrMH1WFPFaJPXuYFJsROXvHQLfKW AgICAgICAgICAgICAgICAgICAgICAgICAgICAgICAg VXSgTKErZDNaRVQgFBCoMJLfJLUhMPStKCHjCCGzSNHsQZZrMFWcZWKsIOEoFRFmLUVhRB4BMNItFIQb ICAgICAgICAgICAgICAgICAgICAgICAgICAgICAgICAgICAgICAgICAgICAgICAgICAgICAgICAgICAg ICAgICAgICAgICAgICAgICAgICAgICAgICAgICAgIC BrOA6ITJJbTYOkLQJfOXUyYHFuQBIaEYWhKQQcYIUfTAQkWMWeXTUsWINgLEJbMSLeWJVkLZLpCUGfSG ViDIWjFTNaXXQaKVArFTHxRSKaBFYnJEPvWOWbLDStKJApSBBjXZAaOFTfYL2UCWQlGFGtDBAxNOBzYL AgICAgICAgICAgICAgICAgICAgICAgICAgICAgICAg ENKvDRYvBSUwVYZnIIUzKCLeEZDiVJXzPCHuVVYxKEKjZSQnWXApOURdLVUcDDGrDLTlSTZqTA3WWWQh ICAgICAgICAgICAgICAgICAgICAgICAgICAgICAgICAgICAgICAgICAgICAgICAgICAgICAgICAgICAg ICAgICAgICAgICAgICAgICAgICAgICAgICAgICAgIC CtWAEqSK0DAOJjXRAdSQFrMAGeJNPpCXBqHJQyEGMqXLCnWKAxGNQiYVMmWLNaZBQiGAAcQUPmDWEjCY WuCBLbUVNuHJDtXJKfIXNgKZEaGSLiGLNoWGRnEZXaCZCtJSHqAPXqFLDlUWBmSY6VOWSxYBPhBOKpUC AgICAgICAgICAgICAgICAgICAgICAgICAgICAgICAg MNHcXWHnSBVlYFVoTSEiEURzXXIyZXBsWOLnEJAiGXNaLMFrSROzEXRqSHQdMMErPFRjVQPpUDQlPU8C ICAgICAgICAgICAgICAgICAgICAgICAgICAgICAgICAgICAgICAgICAgICAgICAgICAgICAgICAgICAg ICAgICAgICAgICAgICAgICAgICAgICAgICAgICAgIC KiTFSwBRZxMU6IUE91sOZmy3Q1FMAyYY5xfjt/Em7LGKzgcoZdbQJzOB5PMkMwGL0cga7WIoIeTQ9gli 8EAZsMKlMdZ3Q2tBQqJUXbQJCNInEcC03vXNpfDo89XDqgPGPlIdBwCWs4Os9VZcIhT3dxBPSjOvD3PJ PbSyR9YXQrSdRrHMihKH4Zt8QflLYqHRg+Qa4RIM9y b8HcDQk4DYBvZK9upt2JKMaOUiJuQ3U0rTSeB8B1YYqzDz6KENEyNMKcPrhoVNSRQIakBA4KUB9etcT1 HP9HoBTcZCCaSDJviCLfWJd3Z69hhCOaEOtwKH1OPWD+Conchita+Gl1XCBPwWYTuKDZsNuLwTVXASyTxD98c vMGgYCZhJNO6CCKsEh9MPYHlI4JxboIwbEdvovYhII UrTCQFAB7UIFugmsBkpYPkxThyTQ78yOpnAS1AEt3OLyDoGI3kzn6NjRMzWq8KBCG6RD5JUGIuNPYuKM UnCDB2GIUlXqDxMLqlUIRlMVGbZCR5YEOuYHPsJE8RAsXrXFCzPwvoKrEpVNIgXYVujh9ITXKrGOJ6BH H2QDTzTSLeSPOpXOpqZYPzCVKsUZs2CIJuKKFeNU1N PeKuDVNiDHT9VQBbDAItXDZewu6EGGUaGUKbFyzrAPVzRYPiPBVtFXcgNJCmBUT8MGa0ILWwFBFoEQ3S MoDlPGXvYYNkXkfsMNNuJCNpgr9YWSDpFUDxNdNjKmMtOGSoVMDqAJrzIKUnQSA9VIShJNNhJQAtRC1U VuBdIKBgPUo2QYCvYSBpCBAtba7TIIYjLVCyQTN1Oh TpBKBjUEGnOOtwTTNiIWA8LJo9SAHmUNPmXX5ZBlNxXUYcWXzeNhNeZMEdUFWnfz5XOUXuYJUoLqszFM MqWDFuKRRrEXzfWCOsLXW8SbE4PJMkRSChWM4YWvWdITKoUYL4YRwmCSQqXXGjoe1CUWVxTFRyLBQ6PX FpYJWbJDLcBDhlQGGmOOZ5YRI2JUQpSHXwKC6CSvBq YKTlGVK0TeasLBEnEJKcjn5POYUzFPZbGFu3XiJqPEBiYYZyUNiaQQFnVPO5LNF8SSGpLKFuQU3JDaPy GCYwFtO8JIblYWTuSRCmas3UBBQlOSRaEZtaCsPtJVZgSBNnOYxgUSUeFCL6BvK1DWBkMCIvSP9UVcBj JGEzBic4QTQxFUFdJYYnqq8PSBPzLYXzZYI5UdTmBA MyTSOiANemMUQgRDVrIQI1IEPyXUUfXC7LYcFsDONqQwczSYjyMEFiHDUdvv1PEKZcOEJiUIDzHiEfMA HiFKUjSXdhEIUaHIJlGoU6FCPxIKBuOU5RGeWxASTiCUA9XwJrIGEdRKXxkb0VXSOmZIW0INwbMNSnHQ OeGWFgGLusCILeYLJmKAXzAWFyKPEfLO3LJiZbSTAc CRO8HXArSCXgGCKciy8WLMZcJHM2POrdPdFyWSSeZPTcLCmzMMLoDOG0TdJ7JLSbDCQrVL4BDbDvWQZv JslmLMRsQIEaJHRagj5FWRMkGTP3Hrt5JUTeSREoRADmRBgvXEQiUAM9BrxxZBZuPKJiCC5OEzLqQZjw JCMUSnm1MIftA7k4SVM8KY9TO5Ijz4JoWHLqYKEUGL gpWB2hxqSoGRYdQz0VH2lQXrj3CEQvWYYbIVKjDkZxGaW1EKZtGvT5OgA0W9NtYbm1GC9qGAD8FBEvYT G2NVXxPRNlAqh0WJIgAcw8SLb9VLWcSynaEsZiGS8PDp9OKoA8ZJW1dSLgGm2RIbf2MtaBWgHbLR2UXY o= ID Date Data Source [id number] 05/30/2020 01:00:00 PM EST [facility] Name Value Range Interpretation Code Description Data Nataly rce(s) Supporting Document(s) SARS coronavirus 2 RNA [facility] This lab was ordered by [facility] and reported by [facility]. ID Date Data Source [id number] 05/30/2020 01:00:00 PM EST [facility] Name Value Range Interpretation Code Description Data Nataly rce(s) Supporting Document(s) SARS COV2 ANGELLA [facility] _SARS CoV2 [id number], NAAReport ed: 06/01/2020 20:05 Status=F RESULT FLAG RANGE UNITS SC --SARS-CoV-2, ANGELLA Not Detected Not Detected [facility] 06/01/20.2005.rfl.COMPLETE.[facility] nucleic [facility] amplification test was developed and its performancecharacteristics determined by [employer]. Nucleic acidamplification tests include PCR and TMA. This test has not been FDAcleared or approved. This test has been authorized by FDA under anEmergency Use Authorization (EUA). This test is only authorized forthe duration of time the declaration that circumstances existjustifying the authorization of the emergency use of in vitrodiagnostic tests for detection of SARS-CoV-2 virus and/or diagnosisof COVID-19 infection under section 564(b)(1) of the Act, 21 U. S.C.360bbb-3(b) (1), unless the authorization is terminated or revokedsooner.When diagnostic testing is negative, the possibility of a falsenegative result should be considered in the context of a patient'srecent exposures and the presence of clinical signs and symptomsconsistent with COVID- 19. An individual without symptoms of COVID-19and who is not shedding SARS-CoV-2 virus would expect to have anegative (not detected) result in this assay.NO MATCH FOUND IN SITE CODE REF TABLE FOR [facility] ID Date Data Source [id number] 05/25/2020 11:55:13 AM EST [address] [address] [id number] 1965 Ordering Physician: DANIELITO PARKS Sex: M Date: 05/03/20 Admission Type: O/P X-ray Number: [id number] Unsigned Transcriptions are preliminary reports and do not represent a Medical or Legal Document CT CHEST-THORAX W/O CONTRAST [id number] COMPLETE:05/03/20 10:31 BBS 95481 (REASON FOR CHEST: 2.2 CM NODULE SEEN IN LLL ON CXR 04/30 Patient weight: [address] examination of the chest acquired. Axial, coronal and sagittal images evaluated. FINDINGS: The neck base is clear. The right lung is clear. In the inferior aspect of left upper lobe there is a speculated nodule measuring 1.8cm. No other suspicious mass visualized. The heart is normal in size. Moderate coronary calcifications noted. No lymphadenopathy. Visualized upper abdomen demonstrates a small hiatal hernia. No acute osseous abnormalities. IMPRESSION: 1.8 cm speculated nodule in the left upper lobe. Findings are suspicious for malignancy. Recommend further evaluation with biopsy. This lesion is somewhat deep for percutaneous guided CT biopsy but still could be performed. A left upper lobe bronchus runs close to the lesion. Bronchoscopic biopsy is also a consideration. While perfo rming the above CT exam, Radiation dose reduction was accomplished utilizing automated exposure control, [place] [address] TELEPHONE RADIOLOGY DEPARTMENT Name: [facility] #: [id number] : 1965 Ordering Physician: DANIELITO PARKS Sex: M Date: 05/03/20 Admission Type: O/P X-ray Number: [id number] Unsigned Transcriptions are preliminary reports and do not represent a Medical or Legal Document and kV based on the patient's body size and/or the use of imperative reconstructive techniques. CT dose in mGy*CM: 449.8 Electronically Reviewed and Signed By MARYBEL NAQVI MD, MD 05/14/20 10:15 Dictating Initials: [place] Transcribed Date: 05/07/20 10:01 Transcribe Initials: LS Name Value Range Interpretation Code Description Data Nataly rce(s) Supporting Document(s) ID Date Data Source [id number] 05/21/2020 01:33:00 [place] [address] TELEPHONE RADIOLOGY DEPARTMENT Name: [facility] #: [id number] : 1965 Ordering Physician: FOSTER RHODES Sex: M Date: 05/11/20 Admission Type: O/P X-ray Number: [id number] Unsigned Transcriptions are preliminary reports and do not represent a Medical or Legal Document CT HEAD W/O CONTRAST [id number] COMPLETE:05/11/20 15:44 LEI (REASON FOR TEST: right sided weakness Patient weight: 255lbs FINDINGS: Noncontrast CT examination of the head acquired. Axial, coronal and sagittal images evaluated. The ventricular system appears normal. No evidence for parenchymal loss is noted. No evidence for masses or mass effect is identified. No epidural or subarachnoid hemorrhage is noted. The bones and soft tissues also appear normal. IMPRESSION: Unremarkable CT scan of the head without IV contrast. While performing the above CT exam, Radiation dose reduction was accomplished utilizing automated exposure control, adjusting of the mA and kV based on the patient's body size and/or the use of imperative reconstructive techniques. CT dose in mGy*CM: 856.2 Electronically Reviewed and Signed [place] [address] TELEPHONE RADIOLOGY DEPARTMENT Name: [facility] #: [id number] : 1965 Ordering Physician: FOSTER RHODES Sex: M Date: 05/11/20 Admission Type: O/P X-ray Number: [id number] Unsigned Transcriptions are preliminary reports and do not represent a Medical or Legal Document MD 05/21/20 13:32 Dictating Initials: [place] Transcribed Date: 05/15/20 10:55 Transcribe Initials: LI Name Value Range Interpretation Code Description Data Nataly rce(s) Supporting Document(s) ID Date Data Source [id number] 05/21/2020 01:11:55 PM EST [facility] [address] [place] [address] TELEPHONE RADIOLOGY DEPARTMENT Name: [facility] #: [id number] : 1965 Ordering Physician: FOSTER RHODES Sex: M Date: 05/11/20 Admission Type: O/P X-ray Number: [id number] Unsigned Transcriptions are preliminary reports and do not represent a Medical or Legal Document CT CERVICAL SPINE W/O CONTRAS [id number] COMPLETE:05/11/20 15:44 LEI (SPINE PROCED REASON: right sided weakness Patient weight: [address] examination of the cervical spine acquired. Axial, coronal and sagittal images evaluated. FINDINGS: There is almost complete fusion of C2 and C3. At C3-C4 there is a tiny central disc protrusion that does no result in central canal stenosis and lateral recess. Additional disc protrusion or disc bulging is not seen. Fracture, subluxation or focal osseous lesion are not seen. Mild degenerative changes are noted at the facet articulation of the left side of C4-C5. Otherwise mild degenerative spondylosis is seen. Para spinal soft tissue are unremarkable. Visualized pneumonic apices are without acute pathology. Mild COPD changes are present. IMPRESSION: No acute osseous joint space abnormality. Degenerative spondylosis noted most marked at the left sided C4-C5 facet articulation. Partial fusion C2-C3. Tiny Central Disc protrusion C3-C4 without central canal stenosis or lateral recess narrowing. While performing the above CT examination, Radiation dose reduction was accomplished utilizing automated exposure control, adjusting of the mA and kV based on the patient's body size and/or the use of imperative reconstructive techniques. CT dose in mGy*CM: 381.9 [address] [place] [address] TELEPHONE RADIOLOGY DEPARTMENT Name: [facility] #: [id number] : 1965 Ordering Physician: FOSTER RHODES Sex: M Date: 05/11/20 Admission Type: O/P X-ray Number: [id number] Unsigned Transcriptions are preliminary reports and do not represent a Medical or Legal Document Electronically Reviewed and Signed By BRIDGET RINALDI MD, MD 05/21/20 13:11 Dictating Initials: KGG Transcribed Date: 05/16/20 10:18 Transcribe Initials: [facility] Name Value Range Interpretation Code Description Data Nataly rce(s) Supporting Document(s) ID Date Data Source [id number] 05/21/2020 01:11:49 PM EST [facility] [address] [place] [address] TELEPHONE RADIOLOGY DEPARTMENT Name: [facility] #: [id number] : 1965 Ordering Physician: FOSTER RHODES Sex: M Date: 05/11/20 Admission Type: O/P X-ray Number: [id number] Unsigned Transcriptions are preliminary reports and do not represent a Medical or Legal Document CT LUMBAR SPINE W/O CONTRAST [id number] COMPLETE:05/11/20 15:44 LEI (SPINE PROCED REASON: right sided weakness Patient weight: 255 lbs. FINDINGS: Axial, coronal, sagittal images were evaluated. Marked degenerative spondylosis is seen in L5-S1 vertebral body end plates. Mild degenerative changes are otherwise are seen. There is no fracture, subluxation, focal osseous lesion or pars defect. Spondylosis and disc bulging in L5- S1 moderate central canal stenosis, marked lateral recess moderate neural foraminal narrowing impingement. L2-L3, L3-L4 no focal spondylosis or disc bulging noted that result in the mild central canal stenosis, moderate neural canal narrowing. L1-L2, T12-L1 and T11-T12 vertebral disc space are unremarkable. Para spinal soft tissues are unremarkable. There is an ecstatic abdominal aorta with a maximum diameter of 2.9 cm. which is not aneurysmal. IMPRESSION: Spondylosis and disc bulging L2-L3, L4-L5, L5-S1. 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 While performing the above CT examination, Radiation dose reduction was accomplished utilizing automated exposure control, [place] [address] TELEPHONE RADIOLOGY DEPARTMENT Name: [facility] #: [id number] : 1965 Ordering Physician: FOSTER RHODES Sex: M Date: 05/11/20 Admission Type: O/P X-ray Number: [id number] Unsigned Transcriptions are preliminary reports and do not represent a Medical or Legal Document and kV based on the patient's body size and/or the use of imperative reconstructive techniques. CT dose in mGy*CM: 928.2 Electronically Reviewed and Signed By BRIDGET RINALDI MD, MD 05/21/20 13:11 Dictating Initials: KGG Transcribed Date: 05/16/20 10:47 Transcribe Initials: BBS Name Value Range Interpretation Code Description Data Nataly rce(s) Supporting Document(s) ID Date Data Source [id number] 05/21/2020 12:57:00 PM EST [facility] Name Value Range Interpretation Code Description Data Nataly rce(s) Supporting Document(s) PDFReport Laboratory test result [facility] ([facility], ) FVC-Pre 3.74 L [facility] ([facility], ) FVC-Pred 4.73 L [facility] ([facility], ) FVC-LLN 3.82 L [facility] ([facility], ) Fev1-Pred 3.61 L [facility] ([facility]) FVC-%Pred-Pre 79 L [facility] ([facility], ) Fev1-LLN 2.85 L [facility] ([facility], ) Fev1-%Pred-Pre 72 L [facility] ([facility], ) Fev1-Pre 2.63 L [facility] ([facility], ) Fev6-Pre 3.74 L [facility] ([facility]) Fev6-%Pred-Pre 82 L [facility] ([facility]) Fev6-Pred 4.53 L [facility] ([facility]) Wnn5ksp-Wvsb 76 % [facility] ([facility], ) Fev6-LLN 3.64 L [facility] ([facility]) Ppf4dwa-RKO 67 % [facility] ([facility]) Wmj9nwk-Hms 70 % [facility] ([facility]) Nlo1ecr-%Pred-Pre 92 % [facility] ([facility]) Eyj9ayc-%Pred-Pre 104 % [facility] ([facility]) Dyc9dah-Zxh 100 % [facility] ([facility]) Dso1uqc-Iqvk 96 % [facility] ([facility], ) FEFMax-Pre 6.54 L/E/sec [facility] ([facility]) FEFMax-%Pred-Pre 70 L/E/sec [facility] ([facility]) FEFMax-Pred 9.27 L/E/sec [facility] ([facility]) FEFMax-LLN 7.01 L/E/sec [facility] ([facility]) [id number] 3.08 L/E/sec [facility] ([facility]) Dog5501-%Pred-Pre 54 L/E/sec [facility] ([facility], ) [id number]-Fee 1.68 L/E/sec [facility] ([facility]) [id number] 1.52 L/E/sec [facility] ([facility], ) Jyo0ttw5-Zhx 70 % [facility] ([facility]) Yfg9mfn1-Hrmz 80 % [facility] ([facility]) ExpTime-Pre 6.62 sec [facility] ([facility]) Klu1crf3-%Pred-Pre 88 % [facility] ([facility], ) Rvn5yfo0-PPJ 71 % [facility] ([facility]) ID Date Data Source [id number] 05/11/2020 02:35:00 PM EST [facility] Name Value Range Interpretation Code Description Data Nataly rce(s) Supporting Document(s) Fibrin D-dimer DDU [Mass/volume] in Platelet poor plas ma by Immunoassay <100 ng/mL 0 - 400 [facility] METHODOLOGY: FLUORESCENCE IMM UNOASSAY \\BLDo\\D- DIMER INTERPRETATION\\BLDx\\ Elevated D-dimer levels occur in a number of clinical situations and are not diagnostic of any specific condition. While increased levels are not specific for DVT or PE, low D-dimer levels may be used to rule out these conditions. Limitations: Specimens from patients who have routinely exposed to animals or to animal serum products may have contain heterophile antibodies, which may cause erroneous D-dimer results. ID Date Data Source [id number] 05/11/2020 02:35:00 PM EST [facility] Name Value Range Interpretation Code Description Data Nataly rce(s) Supporting Document(s) CBC [facility] l COMPLETE BLOOD COUNT Leukocytes [#/volume] in Blood by Automated count 6.4 K/uL 4.0 - 10 .0 [facility] Erythrocytes [#/volume] in Blood by Automated count 4.63 M/uL 4.30 - 6.10 [facility] Hemoglobin [Mass/volume] in Blood 13.8 g/dL 13.5 - 17.5 [facility] Hematocrit [Volume Fraction] of Blood by Automated count 41.7 % 3 9.0 - 50.0 [facility] Erythrocyte mean corpuscular volume [Entitic volume] by Auto mated count 90.1 fL 80.0 - 96.0 [facility] Erythrocyte mean corpuscular hemoglobin [Entitic mass] by Automated count 29.8 pg 26.0 - 34.0 [facility] Erythrocyte mean corpuscular hemoglobin concentration [Mass/volume] by Automated count 33.1 g/dL 32.0 - 36.0 [facility] Erythrocyte distribution width [Ratio] by Automated count 12.8 % 11.6 - 14.8 [facility] Platelets [#/volume] in Blood by Automated count 241 K/uL 150 - 450 [facility] Platelet mean volume [Entitic volume] in Blood by Automated count 8.9 fL 7.1 - 10.4 [facility] Neutrophils [#/volume] in Blood by Automated count 3.45 K/uL 1.70 - 7.70 [facility] Lymphocytes [#/volume] in Blood by Automated count 2.15 K/uL 1.50 - 6.00 [facility] Monocytes [#/volume] in Blood by Automated count 0.52 K/uL 0.00 - 1. 00 [facility] Eosinophils [#/volume] in Blood by Automated count 0.14 K/uL 0.00 - 0.30 [facility] Basophils [#/volume] in Blood by Automated count 0.05 K/uL 0.00 - 0. 10 [facility] 0.04 Urinalysis macro (dipstick) panel - Urine 0.000 10^3/uL 0.000 - 0.012 [facility] Neutrophils/100 leukocytes in Blood by Automated count 54.3 % 42. 2 - 75.2 [facility] Lymphocytes/100 leukocytes in Blood by Automated count 33.9 % 15. 0 - 41.0 [facility] Monocytes/100 leukocytes in Blood by Automated count 8.2 % 0.0 - 12.0 [facility] Eosinophils/100 leukocytes in Blood by Automated count 2.2 % 0.0 - 7.0 [facility] 0.80.60 NRBC 0.0 % [facility] NOT INDICATED [facility] ospital RBC MORPH NOT INDICATED [facility] pital ID Date Data Source [id number] 05/11/2020 02:25:00 PM EST [facility] Name Value Range Interpretation Code Description Data Nataly rce(s) Supporting Document(s) Troponin I.cardiac [Mass/volume] in Serum or Plasma <0.017 ng/mL 0.017 - 0.060 [facility] \\BLDo\\TROPONIN I I NTERPRETATION:\\BLDx\\ < 0.06 ng/mL NOT SUSPICIOUS FOR AN AMI 0.06 - 0.59 ng/mL [place] FOR AN AMI, SERIAL MONITORING RECOMMENDED 0.6 - 1.5 ng/mL SUSPICIOUS FOR AN AMI Reference range updated for new chemiluminescent immunoassay method based on [employer] technology. Effective 01/25/18. ID Date Data Source [id number] 05/11/2020 02:25:00 PM EST [facility] Name Value Range Interpretation Code Description Data Nataly e(s) Supporting Document(s) COMPREHENSIVE CHEM PROFILE [facility] COMPREHENSIVE METABOLIC PANEL Sodium [Moles/volume] in Serum or Plasma 138 mEq/L 136 - 145 [facility] Potassium [Moles/volume] in Serum or Plasma 4.5 mEq/L 3.5 - 5.1 [facility] Chloride [Moles/volume] in Serum or Plasma 104 mEq/L 98 - 107 [facility] Carbon dioxide, total [Moles/volume] in Serum or Plasma 23.9 mEq /L 21.0 - 32.0 [facility] Glucose [Mass/volume] in Serum or Plasma 114 mg/dL 70 - 100 Above high normal [facility] Urea nitrogen [Mass/volume] in Serum or Plasma 30 mg/dL 7 - 18 Above high normal [facility] CREATININE SERUM 1.45 mg/dL 0.70 - 1.30 Above high normal [facility] AGE [address] [facility] HEIGHT 72.00 INCHES [facility] ital eGFR NON-AFR AMR 50 [facility] eGFR AFR AMR >60 [facility] ital BUN/CREAT 21 6 - 25 [facility] l Protein [Mass/volume] in Serum or Plasma 7.4 g/dL 6.0 - 8.3 [facility] Albumin [Mass/volume] in Serum or Plasma 3.6 g/dL 3.8 - 5.4 Below low normal [facility] GLOBULIN 3.8 g/dL 2.0 - 4.0 [facility] l A/G RATIO 0.9 0.8 - 2.0 [facility] l Calcium [Mass/volume] in Serum or Plasma 8.4 mg/dL 8.8 - 10.2 Below low normal [facility] Bilirubin.total [Mass/volume] in Serum or Plasma 0.7 mg/dL 0.2 - 1.0 [facility] Bilirubin.direct [Mass/volume] in Serum or Plasma <0.05 mg/dL 0.0 - 0 .2 [facility] INDIRECT BILI 0.7 mg/dL 0.0 - 1.1 [facility] pital ALK PHOSPHATASE 68 U/L 40 - 129 [facility] ospital Aspartate aminotransferase [Enzymatic ac tivity/volume] in Serum or Plasma by With P-5'-P 42 IU/L 7 - 37 Above high normal [facility] ital Alanine aminotransferase [Enzymatic acti vity/volume] in Serum or Plasma by With P-5'-P 28 IU/L 12 - 78 [facility] ANION GAP 10 7 - 15 [facility] l Estimated GFR referenc e range: >60ml/min/1.73m >18 years: Calculated using IDVT traceable Study Equation <18 years: Calculated using [facility] tracable Bedside Schartz Equation ID Date Data Source [id number] 05/11/2020 02:25:00 PM EST [facility] PROTHROMBIN TIME Name Value Range Interpretation Code Description Data Nataly rce(s) Supporting Document(s) WARFARIN? NO [facility] l 16.2 INR in Platelet poor plasma by Coagulation assay 1.4 1.0 - 4.5 [facility] Reference ranges Warf tyra (Coumadin) Therapy: 21.6 - 40.7 secs Normal (Non-warfarin Therapy): 10.7 - 15.2 secs New Protime Reference Range as of May 04, 2020 ID Date Data Source [id number] 05/02/2020 11:19:11 AM EST [facility] Name Value Range Interpretation Code Description Data Nataly rce(s) Supporting Document(s) Progress Note [facility] KZBOYx2qFoRYNxlhhQ8CNBMpTG0gqpg4SXdvJ2PoVJArjaQnVBYrU9trRIORRMKHJFYymL0tUSKeOweV vYm yPUWoFZACdLnBeLaFmI8fmwjt3gFX5YIDuUqbpVO2HqBs7CFLgH1FiHCQxFNBkw4JcQq4+ZgL7qnAicB s8mJ3PZ5ZFAQgP48uiIr6gDQOtaYhxnBBf9rZRvaeKi6PtoqyPUFWeEFYDJRtDUZDFR23OFYTQYyYUEH lyhl3rh6QaTi6qRlyF86/ZrfmxtVVb+2f7/Lqix5EJ jDXfu6v5nvoQiVdbxwOJCZyKpZIZ6lx53kBOccJGtTbRK8wRJGfQHh4DLgZ48wIIkvZgWK+F93JVGutx 6wjWc8+Adina+5Hcbj3F1/Haiecvf6/1adPgAUaeZnUeZxPoCObpMl55fFDiFImmMZuh0GJVVQAs9gJc1 [file] j9AHjp1qRg0ltYv7+PAGE DESIGNER/Gm19hxXIRKiSNjbWQ9446Qzi/z/dC+2qki0n5pDLbiYjRhpok3PFcexeIVaW [file] J4XKS8nSNoBingGdJ1VWfxUHINRhy= ID Date Data Source [id number] 05/02/2020 10:01:55 AM EST [address] RADIOLOGY DEPARTMENT Name: [facility] #: [id number] : 1965 Ordering Physician: DANIELITO PARKS Sex: M Date: 04/30/20 Admission Type: O/P X-ray Number: [id number] Unsigned Transcriptions are preliminary reports and do not represent a Medical or Legal Document XRAY RIBS BILATERAL W/PA CHES [id number] COMPLETE:04/30/20 15:21 LEI (REASON FOR CHEST: CHEST PAIN Examination of bilateral ribs 7 views submitted. Comparison: 05/26/18 FINDINGS: No displaced rib fracture. No rib lesion. No pneumothorax or pleural effusion. IMPRESSION: Negative bilateral rib series. No fracture. Electronically Reviewed and Signed By LILLIE ERNST 05/02/20 10:00 Dictating Initials: BE Transcribed Date: 05/01/20 09:07 Transcribe Initials: BBS Name Value Range Interpretation Code Description Data Nataly rce(s) Supporting Document(s) ID Date Data Source [id number] 05/02/2020 10:01:52 [place] [address] TELEPHONE RADIOLOGY DEPARTMENT Name: [facility] #: [id number] : 1965 Ordering Physician: DANIELITO PARKS Sex: M Date: 04/30/20 Admission Type: O/P X-ray Number: [id number] Unsigned Transcriptions are preliminary reports and do not represent a Medical or Legal Document XRAY CHEST 2 VIEW PA - [place]ER[place] [id number] COMPLETE:04/30/20 15:21 (REASON FOR CHEST: CHEST PAIN Comparison: 05/26/2018 FINDINGS: Frontal and lateral projection of the chest submitted for evaluation. There is left lower lung 2.2 cm opacity. Right lung clear. No pleural effusion cardiac mediastinal silhouette within normal limits. IMPRESSION: Nodular density left lower lung measuring 2.2. cm. Etiology is unknown. Recommend CT examination. Electronically Reviewed and Signed By LILLIE ERNST 05/02/20 10:00 Dictating Initials: BE Transcribed Date: 05/01/20 09:38 Transcribe Initials: BBS Name Value Range Interpretation Code Description Data Nataly rce(s) Supporting Document(s) ID Date Data Source [id number] 04/30/2020 02:20:00 PM EST [facility] Name Value Range Interpretation Code Description Data Nataly rce(s) Supporting Document(s) LYME AB wRFX TO WB [id number] [facility] _LYME AB WESTERN BLOT REFLEX_Lyme A ntibody/Line Blot ReflexReported: 05/02/2020 16:05 Status=F --------TEST RESULT FLAG RANGE UNITS SC --Lyme IgG/IgM Ab <0.91 0.00-0.90 ISR RN 05/02/20.1605.rfl.CORRCTD .LCTR Negative <0.91 Equivocal 0.91 - 1.09 Positive >1.09Lyme Disease Ab, Quant, <0.80 0.00-0.79 index RN 05/02/20.1605.rfl.CORRCTD .LCTRIgM Negative <0.80 Equivocal 0.80 - 1.19 Positive >1.19 . IgM levels may peak at 3-6 weeks post infection, then gradually decline.RN Test performed by: [facility] [address] Joan Israel MD 05/02/20.1615.XMT.SENT REF 05/02/20.6.XMT.SENT REF ID Date Data Source [id number] 04/30/2020 02:20:00 PM EST [facility] Name Value Range Interpretation Code Description Data Nataly rce(s) Supporting Document(s) PSA FREE AND TOTAL PANEL SERIAL [id number] [facility] _PSA TOTAL & % FREE PANEL (SERIAL)_ PSA Total+% Free (Serial)Reported: 05/02/2020 14:05 Status=F --------TEST RESULT FLAG RANGE UNITS SC --Prostate Specific Ag, 0.5 0.0-4.0 ng/mL 05/02/20.1405.rfl.CORRCTD .LCTRSerumRoche ECLIA methodology. .According to the [place] [employer], Serum PSA shoulddecrease and remain at undetectable levels after radicalprostatectomy. The AUA defines biochemical recurrence as an initialPSA value 0.2 ng/mL or greater followed by a subsequent confirmatoryPSA value 0.2 ng/mL or greater.Values obtained with different assay methods or kits cannot be usedinterchangeably. Results cannot be interpreted as absolute evidenceof the presence or absence of malignant disease.PSA, Free 0.21 N/A ng/mL 05/02/20.1405.rfl.CORRCTD .LCTRRoche ECLIA methodology.% Free PSA 42.0 % 05/02/20.1405.rfl.CORRCTD .LCTRThe table below lists the probability of prostate cancer formen with non-suspicious ALIE results and total PSA between4 and 10 ng/m L, by patient age (Guerrero et al, YASIR 1998,279:1542). % Free PSA 50-64 yr 65-75 yr 0.00-10.00% 56% 55% 10.01-15.00% 24% 35% 15.01-20.00% 17% 23% 20.01-25.00% 10% 20% >25.00% 5% 9%Please note: Guerrero et al did not make specific recommendations regarding the use of percent free PSA for any other population of men.PDF . TG 05/02/20.1405.rfl.CORRCTD .LCTRRN Test performed by: [facility] [address] [address] Joan Israel MDTG Test performed by: [facility] RTP [address] [place] [id number] Celso Simmons MD 05/02/20.1406.XMT.SENT REF 05/02/20.1406.XMT.SENT REF ID Date Data Source [id number] 04/30/2020 02:20:00 PM EST [facility] Name Value Range Interpretation Code Description Data Nataly rce(s) Supporting Document(s) 25-OH VITAMIN D 26.5 ng/mL 30.0 - 100 Below low normal [facility] Deficient < 20 ng/mL Insufficient 20 - < 30 ng/mL Sufficient 30 - 100 ng/mL 25-OH vitamin D reference values based on the Clinical Guidelines Subcommittee of the Endocrine Society Task Force. Biotin can interfere with 25-OH Vitamin D results if taken 48 hours prior to specimen collection. ID Date Data Source [id number] 04/30/2020 02:20:00 PM EST [facility] Name Value Range Interpretation Code Description Data Nataly rce(s) Supporting Document(s) Hemoglobin A1c/Hemoglobin.total in Blood 6.1 % 4.0 - 5.6 Above high normal [facility] Glucose mean value [Mass/volume] in Blood Estimated fr om glycated hemoglobin 128 mg/dL [facility] \\BLDo\\HEMOGLO BIN A1C\\BLDx\\ 4.0 - 5.6%: Normal 5.7 - 6.4%: Suggests Impaired Glucose Metabolism > or = 6.5%: Abnormal Estimated average glucose calculated using ADAG Study formula as recommended by the [place] [employer]. ID Date Data Source [id number] 04/30/2020 02:20:00 PM EST [facility] Name Value Range Interpretation Code Description Data Nataly rce(s) Supporting Document(s) C reactive protein [Mass/volume] in Serum or Plasma 9.3 mg/L 0.0 - 9.0 Above high normal [facility] Reference range updated to astrid grace recommended. Effective 02/10/18. ID Date Data Source [id number] 04/30/2020 02:20:00 PM EST [facility] Name Value Range Interpretation Code Description Data Nataly rce(s) Supporting Document(s) COMPREHENSIVE CHEM PROFILE [facility] COMPREHENSIVE METABOLIC PANEL Sodium [Moles/volume] in Serum or Plasma 137 mEq/L 136 - 145 [facility] Potassium [Moles/volume] in Serum or Plasma 4.4 mEq/L 3.5 - 5.1 [facility] Chloride [Moles/volume] in Serum or Plasma 103 mEq/L 98 - 107 [facility] Carbon dioxide, total [Moles/volume] in Serum or Plasma 23.3 mEq /L 21.0 - 32.0 [facility] Glucose [Mass/volume] in Serum or Plasma 105 mg/dL 70 - 100 Above high normal [facility] Urea nitrogen [Mass/volume] in Serum or Plasma 26 mg/dL 7 - 18 Above high normal [facility] CREATININE SERUM 1.29 mg/dL 0.70 - 1.30 [facility] AGE 55 yrs [facility] l HEIGHT 64.00 INCHES [facility] ital eGFR NON-AFR AMR 58 [facility] eGFR AFR AMR >60 [facility] ital BUN/CREAT 20 6 - 25 [facility] Protein [Mass/volume] in Serum or Plasma 7.8 g/dL 6.0 - 8.3 [facility] Albumin [Mass/volume] in Serum or Plasma 3.9 g/dL 3.8 - 5.4 [facility] GLOBULIN 3.9 g/dL 2.0 - 4.0 [facility] A/G RATIO 1.0 0.8 - 2.0 [facility] l Calcium [Mass/volume] in Serum or Plasma 9.3 mg/dL 8.8 - 10.2 [facility] Bilirubin.total [Mass/volume] in Serum or Plasma 0.4 mg/dL 0.2 - 1.0 [facility] Bilirubin.direct [Mass/volume] in Serum or Plasma 0.1 mg/dL 0.0 - 0. 2 [facility] INDIRECT BILI 0.3 mg/dL 0.0 - 1.1 [facility] pital ALK PHOSPHATASE 80 U/L 40 - 129 [facility] ospital Aspartate aminotransferase [Enzymatic ac tivity/volume] in Serum or Plasma by With P-5'-P 25 IU/L 7 - 37 [facility] Alanine aminotransferase [Enzymatic acti vity/volume] in Serum or Plasma by With P-5'-P 27 IU/L 12 - 78 [facility] ANION GAP 11 7 - 15 [facility] l Estimated GFR referenc e range: >60ml/min/1.73m >18 years: Calculated using IDVT traceable Study Equation <18 years: Calculated using IDVT tracable Bedside Schartz Equation ID Date Data Source [id number] 04/30/2020 02:20:00 PM EST [facility] Name Value Range Interpretation Code Description Data Nataly rce(s) Supporting Document(s) TSH 1.29 uIU/mL 0.36 - 3.74 [facility] pital Reference range updated for new [employer] technology based chemiluminescent immunoassay method, and age specific ranges. Effective 02/23/18. ID Date Data Source [id number] 04/30/2020 02:20:00 PM EST [facility] Name Value Range Interpretation Code Description Data Nataly rce(s) Supporting Document(s) Cholesterol [Mass/volume] in Serum or Plasma 177 mg/dL [facility] Triglyceride [Mass/volume] in Serum or Plasma 81 mg/dL [facility] Cholesterol in HDL [Mass/volume] in Serum or Plasma 49 mg/dL [facility] Cholesterol in LDL [Mass/volume] in Serum or Plasma by calculati on 112 mg/dL [facility] CHOL/HDL 3.61 [facility] \\BLDo\\INTERPRE TATION\\BLDx\\ REFERENCE RANGES (NATIONAL CHOLESTEROL EDUCATION PROGRAM) CHOLESTEROL < 200 mg/dL DESIREABLE 200 - 239 mg/dL BORDERLINE HIGH > 240 mg/dL HIGH TRIGLYCERIDES < 150 mg/dL DESIREABLE 150 - 199 mg/dL BORDERLINE HIGH 200 - 499 mg/dL HIGH > or = 500 mg/dL VERY HIGH HDL > or = 60 mg/dL HIGH < 40 mg/dL LOW LDL < 100 mg/dL DESIREABLE 100 - 129 mg/dL LOW RISK 130 - 159 mg/dL BORDERLINE HIGH 160 - 189 mg/dL HIGH > or = 190 mg/dL VERY HIGH ID Date Data Source [id number] 04/30/2020 02:20:00 PM EST [facility] Name Value Range Interpretation Code Description Data Nataly rce(s) Supporting Document(s) SED RATE 15 mm/HR 0 - 20 [facility] ID Date Data Source [id number] 04/30/2020 02:20:00 PM EST [facility] Name Value Range Interpretation Code Description Data Nataly rce(s) Supporting Document(s) CBC [facility] COMPLETE BLOOD COUNT Leukocytes [#/volume] in Blood by Automated count 7.6 K/uL 4.0 - 10 .0 [facility] Erythrocytes [#/volume] in Blood by Automated count 4.66 M/uL 4.30 - 6.10 [facility] Hemoglobin [Mass/volume] in Blood 13.9 g/dL 13.5 - 17.5 [facility] Hematocrit [Volume Fraction] of Blood by Automated count 42.1 % 3 9.0 - 50.0 [facility] Erythrocyte mean corpuscular volume [Entitic volume] by Auto mated count 90.3 fL 80.0 - 96.0 [facility] Erythrocyte mean corpuscular hemoglobin [Entitic mass] by Automated count 29.8 pg 26.0 - 34.0 [facility] Erythrocyte mean corpuscular hemoglobin concentration [Mass/volume] by Automated count 33.0 g/dL 32.0 - 36.0 [facility] Erythrocyte distribution width [Ratio] by Automated count 12.6 % 11.6 - 14.8 [facility] Platelets [#/volume] in Blood by Automated count 233 K/uL 150 - 450 [facility] Platelet mean volume [Entitic volume] in Blood by Automated count 8.9 fL 7.1 - 10.4 [facility] Neutrophils [#/volume] in Blood by Automated count 4.07 K/uL 1.70 - 7.70 [facility] Lymphocytes [#/volume] in Blood by Automated count 2.53 K/uL 1.50 - 6.00 [facility] Monocytes [#/volume] in Blood by Automated count 0.69 K/uL 0.00 - 1. 00 [facility] Eosinophils [#/volume] in Blood by Automated count 0.17 K/uL 0.00 - 0.30 [facility] Basophils [#/volume] in Blood by Automated count 0.06 K/uL 0.00 - 0. 10 [facility] 0.05 Urinalysis macro (dipstick) panel - Urine 0.000 10^3/uL 0.000 - 0.012 [facility] Neutrophils/100 leukocytes in Blood by Automated count 53.8 % 42. 2 - 75.2 [facility] Lymphocytes/100 leukocytes in Blood by Automated count 33.4 % 15. 0 - 41.0 [facility] Monocytes/100 leukocytes in Blood by Automated count 9.1 % 0.0 - 12.0 [facility] Eosinophils/100 leukocytes in Blood by Automated count 2.2 % 0.0 - 7.0 [facility] 0.80.70 NRBC 0.0 % [facility] MANUAL DIFF NOT INDICATED [facility] RBC MORPH NOT INDICATED [facility] Procedure Social History Code Duration Value Status Description Data Source(s ) Alcohol intake 06/18/2020 12:00:00 AM EST Yes completed [facility] Smoking 06/18/2020 12:00:00 AM EST Former smoker completed Former smoker [facility] Smoking 05/21/2020 12:00:00 AM EST Patient is a former smoker completed Patient is a former smoker [facility] ([facility], ) Vital Signs ID Date Data Source UNK Name Value Range Interpretation Code Description Data Source(s) Oxygen saturation in Arterial blood by Pulse oximetry 98 % 98 % [facility] Body mass index (BMI) [Ratio] 36.96 kg/m2 36.96 kg/m2 [facility] Body weight 120.203 kg 120.203 kg [facility] Body height 180.3 cm 180.3 cm [facility] Heart rate 66 /min 66 /min [facility] Diastolic blood pressure 78 mm[Hg] 78 mm[Hg] [facility] Systolic blood pressure 140 mm[Hg] 140 mm[Hg] [facility] Body weight 121.11 kg 121.11 kg [facility] Body temperature 36.1 Raysa 36.1 Raysa [facility] Respiratory rate 18 /min 18 /min [facility] Heart rate 87.0 /min 87.0 /min [facility] [place] [facility] saturation in Arterial blood by Pulse oximetry 97 % 97 % [facility] Body height 182.8800 cm 182.8800 cm [facility] Body surface area Derived from formula 2.48 m2 2.48 m2 [facility] Diastolic blood pressure 71 mm[Hg] 71 mm[Hg] [facility] Systolic blood pressure 157 mm[Hg] 157 mm[Hg] [facility] Body mass index (BMI) [Ratio] 36.21 kg/m2 36.21 kg/m2 [facility] Body surface area Derived from formula 2.33 m2 2.33 m2 [facility] ([facility], ) Body weight 120.658 kg 120.658 kg [facility] ([facility]) Lane body weight 160 [lb_av] 160 [lb_av] [facility] ([facility]) Body mass index (BMI) [Ratio] 39.3 kg/m2 39.3 k g/m2 [facility] ([facility]) Body weight 266.00 [lb_av] 266.00 [lb_av] [facility] ([facility]) Body height 69 [in_i] 69 [in_i] [facility] ([facility]) 5'9" Body temperature 97.3 [degF] 97.3 [degF] [facility] ([facility]) Oxygen saturation in Arterial blood by Pulse oximetry 98 % 98 % [facility] ([facility], ) Heart rate 66 /min 66 /min [facility] ([facility], ) Diastolic blood pressure 82 mm[Hg] 82 mm[Hg] [facility] Systolic blood pressure 140 mm[Hg] 140 mm[Hg] [facility] Diastolic blood pressure 70 mm[Hg] 70 mm[Hg] [facility] Systolic blood pressure 120 mm[Hg] 120 mm[Hg] [facility] Body weight 120.66 kg 120.66 kg [facility] Body temperature 36.9 Raysa 36.9 Raysa [facility] Respiratory rate 20 /min 20 /min [facility] Heart rate 74.0 /min 74.0 /min [facility] [place] ospital Oxygen saturation in Arterial blood by Pulse oximetry 98 % 98 % [facility] Body height 162.5600 cm 162.5600 cm [facility] Body surface area Derived from formula 2.33 m2 2.33 m2 [facility] Diastolic blood pressure 74 mm[Hg] 74 mm[Hg] [facility] Systolic blood pressure 144 mm[Hg] 144 mm[Hg] [facility] Body mass index (BMI) [Ratio] 45.66 kg/m2 45.66 kg/m2 [facility] Patient Treatment Plan of Care Planned Activity Planned Date Details Description Data Source (s) Albuterol 0.833 MG/ML / Ipratropium [place] 0.167 MG/M L Inhalant Solution 06/11/2020 12:00:00 AM [facility] albuterol (PROVENTIL HFA;VENTOLIN HFA) 108 (90 Base) M CG/ACT inhaler 06/11/2020 12:00:00 AM [facility] Metoprolol Tartrate 25 MG Oral Tablet 06/05/2020 12:00:00 AM [facility] Simvastatin 80 MG Oral Tablet 06/04/2020 12:00:00 AM [facility] Ramipril 2.5 MG Oral Capsule 06/04/2020 12:00:00 AM [facility] clopidogrel 75 MG Oral Tablet 06/04/2020 12:00:00 AM [facility] pantoprazole 40 MG Delayed Release Oral Tablet 05/16/2020 12:00:00 AM [facility] pantoprazole 40 MG Delayed Release Oral Tablet [Proton ix] 05/16/2020 12:00:00 AM [facility] l pantoprazole 40 MG Delayed Release Oral Tablet [Proton ix] 05/16/2020 12:00:00 AM [facility] Referral 05/07/2020 12:00:[address] [facility] Referral 05/07/2020 12:00:[address] [facility] Cholecalciferol 2000 UNT Oral Capsule 05/02/2020 12:00:00 AM [facility] CT of chest 05/02/2020 12:00:[address] [facility] Cholecalciferol 2000 UNT Oral Capsule 05/02/2020 12:00:00 AM [facility] CT of chest 05/02/2020 12:00:[address] [facility] CT of chest 05/02/2020 12:00:[address] [facility] Cholecalciferol 2000 UNT Oral Capsule 05/02/2020 12:00:00 AM [facility] tramadol hydrochloride 50 MG Oral Tablet 04/30/2020 12:00:00 AM [facility] Clotrimazole 10 MG/ML Topical Cream 04/30/2020 12:00:00 AM [facility] tizanidine 4 MG Oral Tablet 04/30/2020 12:00:00 AM [facility] tramadol hydrochloride 50 MG Oral Tablet 04/30/2020 12:00:00 AM [facility] Clotrimazole 10 MG/ML Topical Cream 04/30/2020 12:00:00 AM [facility] tizanidine 4 MG Oral Tablet 04/30/2020 12:00:00 AM [facility] tramadol hydrochloride 50 MG Oral Tablet 04/30/2020 12:00:00 AM [facility] Clotrimazole 10 MG/ML Topical Cream 04/30/2020 12:00:00 AM [facility] tizanidine 4 MG Oral Tablet 04/30/2020 12:00:00 AM EST [facility] tramadol hydrochloride 50 MG Oral Tablet 04/30/2020 12:00:00 AM EST [facility] 200 ACTUAT Albuterol 0.09 MG/ACTUAT Metered Dose Inhal er [ProAir] 04/18/2020 12:00:00 AM EST [facility] l 200 ACTUAT Albuterol 0.09 MG/ACTUAT Metered Dose Inhal er [ProAir] 04/18/2020 12:00:[address] [facility] 200 ACTUAT Albuterol 0.09 MG/ACTUAT Metered Dose Inhal er [ProAir] 04/18/2020 12:00:[address] [facility] Ramipril 2.5 MG Oral Capsule 03/05/2020 12:00:00 AM EDT [facility] Simvastatin 80 MG Oral Tablet 03/05/2020 12:00:00 AM EDT [facility] clopidogrel 75 MG Oral Tablet 03/05/2020 12:00:00 AM EDT [facility] Ramipril 2.5 MG Oral Capsule 03/05/2020 12:00:00 AM EDT [facility] Simvastatin 80 MG Oral Tablet 03/05/2020 12:00:00 AM EDT [facility] clopidogrel 75 MG Oral Tablet 03/05/2020 12:00:00 AM EDT [facility] clopidogrel 75 MG Oral Tablet 03/05/2020 12:00:00 AM EDT [facility] Ramipril 2.5 MG Oral Capsule 03/05/2020 12:00:00 AM EDT [facility] Simvastatin 80 MG Oral Tablet 03/05/2020 12:00:00 AM EDT [facility] Albuterol 0.833 MG/ML / Ipratropium [place] 0.167 MG/M L Inhalant Solution 01/27/2020 12:00:00 AM EDT [facility] Albuterol 0.833 MG/ML / Ipratropium [place] 0.167 MG/M L Inhalant Solution 01/27/2020 12:00:00 AM EDT [facility] Albuterol 0.833 MG/ML / Ipratropium [place] 0.167 MG/M L Inhalant Solution 01/27/2020 12:00:00 AM EDT [facility] pantoprazole 40 MG Delayed Release Oral Tablet [Proton ix] 11/30/2019 12:00:[address] [facility] Metoprolol Tartrate 25 MG Oral Tablet 08/30/2019 12:00:00 AM EDT [facility] Metoprolol Tartrate 25 MG Oral Tablet 08/30/2019 12:00:00 AM EDT [facility] Metoprolol Tartrate 25 MG Oral Tablet 08/30/2019 12:00:00 AM EDT [facility]
[2020-06-27] MEDS ORDERED: LIDOCAINE 2% 100MG/5ML SDV (FOR ANES.) As Ordered ONE (08:34)
[2020-06-27] MEDS ORDERED: propofoL 200 MG/20 ML VIAL As Ordered ONE (08:34)
[2020-06-27] MEDS ORDERED: ROCURONIUM BROMIDE 50 MG/5 ML VIAL As Ordered ONE ×2 (08:34→10:14)
[2020-06-27] MEDS ORDERED: MIDAZOLAM INJ 2MG/2ML VIAL (J2250 PER 1MG) As Ordered ONE (08:35)
[2020-06-27] MEDS ORDERED: fentaNYL 250 MCG/5 ML INJECTION (J3010) As Ordered ONE (08:35)
[2020-06-27] MEDS ORDERED: EPINEPHrine 1MG/10ML SYRINGE 1.5IN As Ordered ONE (09:21)
[2020-06-27] MEDS ORDERED: CETACAINE SPRAY 5GM As Ordered ONE (09:21)
[2020-06-27] MEDS ORDERED: THROMBIN SOLN 5,000 UNITS VIAL As Ordered ONE (09:21)
[2020-06-27] MEDS ORDERED: LIDOCAINE 1% SDV 30ML VIAL As Ordered ONE (09:21)
[2020-06-27] MEDS ORDERED: dexameTHASONE 4 MG/ML 1ML VIAL (J1100 PER 1MG) As Ordered ONE (09:56)
[2020-06-27] MEDS ORDERED: ONDANSETRON 4MG/2ML VIAL As Ordered ONE (10:12)
[2020-06-27] MEDS ORDERED: PHENYLephrine 500MCG 5ML (100MCG/ML) SYRINGE As Ordered ONE (10:19)
--- NOTE | 2020-06-27 11:02 | REP ---
INDICATION: LEFT UPPER LOBE ABNORMALITY. COMPARISON: None. TECHNIQUE: Intraoperative fluoroscopic imaging using portable C-arm technique FINDINGS: Images demonstrate bronchoscopy to the left lung. Total fluoroscopic time 3 minutes 40 seconds IMPRESSION: Status post left bronchoscopy <Electronically signed by Kwabena Kincaid > 06/27/20 [id number]
[2020-06-27] MEDS ORDERED: ONDANSETRON 4MG/2ML VIAL IV PRN (11:30)
[2020-06-27] MEDS ORDERED: LR 1,000 ML IV SCH (11:30)
[2020-06-27] MEDS ORDERED: PERCOCET 5MG/325MG TAB PO PRN (11:30)
[2020-06-27] MEDS ORDERED: fentaNYL 100 MCG/2 ML INJECTION (J3010) IV PRN (11:30)
--- NOTE | 2020-06-27 11:31 | REP ---
INDICATION: R/O PNEUMO. COMPARISON: 04/30/2020. TECHNIQUE: SINGLE PORTABLE AP VIEW OF THE CHEST WAS PERFORMED. FINDINGS: There is no pneumothorax. THERE IS NO ACUTE INFILTRATE OR PULMONARY EDEMA. LUNGS ARE CLEAR. HEART IS NOT SIGNIFICANTLY ENLARGED. MEDIASTINAL SILHOUETTE IS UNREMARKABLE. THE VISUALIZED OSSEOUS STRUCTURES ARE INTACT.Two left parahilar clips are present. IMPRESSION: No pneumothorax. <Electronically signed by Don Angel > 06/27/20 [id number]
--- NOTE | 2020-06-27 11:36 | ROOR ---
Patient Name: Juan De La Garza Procedure Date: 06/27/2020 9:12 AM Date of : 1965 Admit Type: Outpatient Age: 55 Note Status: Finalized Attending MD: Joyce Santos MD Procedure: Bronchoscopy Indications: Left upper lobe nodule Providers: Joyce Santos MD (Doctor), Elliot Ibarra Do (Resident) Referring MD: Claus Underwood DO (Referring MD) Requesting Physician: Medicines: Lidocaine 4% via nebulizer with Albuterol 2.5 mg, Epinephrine 1 mg/10 mL topical 1 mL, Cetacaine topical, General Anesthesia Complications: No immediate complications. Estimated blood loss: Minimal Procedure: Pre-Anesthesia Assessment: - Prior to the procedure, a History and Physical was performed, and patient medications and allergies were reviewed. The patient's tolerance of previous anesthesia was also reviewed. The risks and benefits of the procedure and the sedation options and risks were discussed with the patient. All questions were answered, and informed consent was obtained. Prior Anticoagulants: The patient has taken Plavix (clopidogrel), last dose was 7 days prior to procedure. ASA Grade Assessment: III - A patient with severe systemic disease. After reviewing the risks and benefits, the patient was deemed in satisfactory condition to undergo the procedure. - Patient identification and proposed procedure were verified prior to the procedure by the physician, the nurse, the anesthesiologist, the barratte operator and the live truck technician. The procedure was verified in the procedure room. The Bronchoscope was introduced through the mouth, via the endotracheal tube (the patient was intubated for the procedure) and advanced to the tracheobronchial tree of both lungs. The procedure was accomplished without difficulty. The patient tolerated the procedure well. Findings: Respiratory tract: There was mild edema of the laryngeal tubercles, arytenoids and folds. The vocal cords appear normal. The subglottic space is normal. The trachea is of normal caliber. The nora is sharp. The entire tracheobronchial tree was examined to at least the first subsegmental level. Bronchial mucosa and anatomy are normal except in the anterior segment of the left upper lobe. There were some white/clear mucous secretions in trachea and bronchial segments. In the left upper lobe anterior subsegmental bronchus there was edematous and extrinsic compression with possible submucosal infiltration causing narrowing of the airway. [employer] robotic Electromagnetic navigation bronchoscopy was performed. The CT scan was used for planning purposes. A virtual bronchoscopic image was generated using the planning software. The target in the anterior segment of the left upper lobe was marked. A nodule approx 2.3 cm in size was found and a pathway was created. After a complete airway exam, the robotic bronchoscopy navigation phase was then begun to locate the target lesion(s). Positioning centrally (in relation to the lesion) was confirmed using the Olympus radial probe US catheter. Transbronchial biopsies of a nodule were performed in the anterior segment of the left upper lobe using forceps and sent for histopathology examination. The procedure was guided by fluoroscopy. Transbronchial biopsy technique was selected because the sampling site was not visible endoscopically. Eight biopsy passes were performed. Eight biopsy samples were obtained. Transbronchial needle aspirations of a nodule were performed in the anterior segment of the left upper lobe using a fine (20 gauge) needle and sent for routine cytology. The procedure was guided by fluoroscopy. Transbronchial needle aspiration technique was selected because the sampling site was not visible endoscopically. Two samples were obtained. Fiducial marker placement was performed. Once the target lesion was identified, two markers were deployed in the lesion 3 mm apart in the anterior segment of the left upper lobe. An endobronchial ultrasound endoscope was utilized in order to assist with fine needle aspiration in the left paratracheal area and in the subcarinal area. Transbronchial needle aspirations of lymph nodes were performed in the left paratracheal area and in the subcarinal area using an Olympus EBUS-TBNA 21 gauge needle and sent for routine cytology. The procedure was guided by ultrasound. Transbronchial needle aspiration technique was selected because the sampling site was not visible endoscopically. Impression: - Left upper lobe nodule - Electromagnetic navigation bronchoscopy was performed. - Transbronchial lung biopsies were performed. - A transbronchial needle aspiration was performed. - Endobronchial ultrasound was performed. - A transbronchial needle aspiration was performed. - Fiducial markers were deployed. Recommendation: - Await test results. Procedure Code(s): --- Professional --- 13406, Bronchoscopy, rigid or flexible, including fluoroscopic guidance, when performed; with placement of fiducial markers, single or multiple 27706, Bronchoscopy, rigid or flexible, including fluoroscopic guidance, when performed; with transbronchial needle aspiration biopsy(s), trachea, main stem and/or lobar bronchus(i) 29926, Bronchoscopy, rigid or flexible, including fluoroscopic guidance, when performed; with transbronchial lung biopsy(s), single lobe 29737, Bronchoscopy, rigid or flexible, including fluoroscopic guidance, when performed; with computer-assisted, image-guided navigation (List separately in addition to code for primary procedure[s]) 27271, Bronchoscopy, rigid or flexible, including fluoroscopic guidance, when performed; with transendoscopic endobronchial ultrasound (EBUS) during bronchoscopic diagnostic or therapeutic intervention(s) for peripheral lesion(s) (List separately in addition to code for primary procedure[s]) CPT copyright 2019 [employer]. All rights reserved. The codes documented in this report are preliminary and upon project estimator review may be revised to meet current compliance requirements. Attending Participation: I personally performed the entire procedure. Joyce Santos MD 06/27/2020 11:35:41 AM Elliot Ibarra Do Number of Addenda: 0 Note Initiated On: 06/27/2020 9:12 AM
[2020-06-27 13:20] VITALS: BP 125/70
[2020-06-27] MEDS ORDERED: ETOMIDATE INJ 20MG/10ML VIAL As Ordered ONE (15:36)
== END 2020-06-27 13:25 | disposition home or self-care (01) ==
LOC: M SDC 08:05
PROVIDERS: ATTEND Internal Medicine Pulmonary Disease
DX: J44.9 Chronic obstructive pulmonary disease, unspecified (principal); R06.00 Dyspnea, unspecified; E78.49 Other hyperlipidemia; K21.9 Gastro-esophageal reflux disease without esophagitis; Z87.891 Personal history of nicotine dependence; I25.10 Atherosclerotic heart disease of native coronary artery without angina pectoris; E66.9 Obesity, unspecified
CPT/HCPCS: 31624; 31626; 31627; 31628; 31629; 71045; 76000; 88173; 88305; 88341; 88342; A4648; J1100; J2250; J2370; J2405; J3010; S2900

== ENCOUNTER → 2020-07-23 | Outpatient (CLI) | payer MEDICARE, MEDICAID ==
[~2020-07-23] MED LIST changes: -ALBUTEROL SULFATE 2.5 MG/0.5 ML INH NEB SOLN INH ONE; -LIDOCAINE 1% MDV 20ML VIAL SQ PRN; -LIDOCAINE 4% INJ 5ML AMP NEB ONE; -LR 1,000 ML IV ONE
--- NOTE | 2020-07-24 10:46 | REP ---
INDICATION: DIAGNOSING LUNG CANCER. COMPARISON: Comparison CT study of the chest May 31, 2020. Comparison CT study 03 May 2020 is also reviewed.. TECHNIQUE: Fifty-six minutes following the intravenous injection of a 15.48 mCi dose of F-18 FDG, three-dimensional PET scintigraphy is acquired from the skull base to the proximal thighs. Triplanar noncontrast CT scanning is acquired through the same anatomic range for attenuation correction, and image registration with scan parameters optimized to minimize radiation exposure to the patient. PET scintigraphy and CT datasets were fused and displayed on a workstation with multiplanar and projection display capability. FINDINGS: There are fiducial markers at the medial margin of the left upper lobe spiculated nodule. The nodule appears a little larger measuring 2.[address] study. There is some peripheral parenchymal opacity adjacent to the nodule. On PET-CT imaging, there is markedly hypermetabolic uptake within this left upper lobe spiculated nodule, maximum SUV value 15.57. There is no hilar or mediastinal hypermetabolic adenopathy. No other abnormal pulmonary parenchymal hypermetabolic uptake is seen. The head and neck soft tissues are unremarkable. There is incidental uptake in a morphologically normal appearing left axillary lymph node with maximum standard uptake value 3.79. This is of uncertain significance. It would be a unlikely metastatic foot site. Question inflammatory changes. The lymph node itself has a thin strip of cortex surrounded by fatty hilar architecture with a morphologically benign appearance. In the abdomen and pelvis, normal hepatic, splenic, and gastrointestinal FDG accumulation is seen. No abnormal hypermetabolic uptake is seen in the abdomen or pelvis. IMPRESSION: The known spiculated nodule in the left upper lobe is quite hypermetabolic, 15.57 SUV. There is ariella uptake in the left axilla in a morphologically normal lymph node, likely an incidental finding question inflammatory or reactive lymph node. Otherwise negative PET scintigraphy. <Electronically signed by Thad Gill > 07/24/20 [id number]
== END ==
LOC: M PLARAD 13:55
PROVIDERS: ATTEND Internal Medicine Pulmonary Disease
DX: R91.1 Solitary pulmonary nodule (principal)
CPT/HCPCS: 78815; A9552

== ENCOUNTER → 2021-04-10 | Outpatient (CLI) | payer MEDICARE, MEDICAID ==
--- NOTE | 2021-04-10 15:26 | REP ---
INDICATION: SOLITARY PULMONARY NODULE COMPARISON: Multiple the latest 05/31/2020 TECHNIQUE: Standard helical technique without intravenous contrast FINDINGS: Mediastinal and left hilar adenopathy has developed since the last exam. There are no pleural or pericardial effusions. There is no significant change in appearance of the imaged upper abdomen or imaged osseous structures. Evaluation of the lung tran shows a large mass in the apicoposterior segment of the left upper lobe which measures approximately 4.4 x 7.4 x 5.5 cm. Metallic radiodensities are seen within this mass consistent with fiducial markers. This mass extends to the left hilum and abuts the major fissure. Tiny peripheral cystic airspaces are seen along the bilateral upper and mid lung zones consistent with early honeycomb phenomena. IMPRESSION: 1. Large left upper lobe mass as described above. 2. Early honeycomb lung formation as described above. 3. Newly developed mediastinal and hilar adenopathy. <Electronically signed by Felipe Snowden > 04/10/21 [id number]
== END ==
LOC: M RAD 12:52
PROVIDERS: ATTEND Internal Medicine Pulmonary Disease
DX: R91.1 Solitary pulmonary nodule (principal)

== ENCOUNTER → 2021-04-18 | Outpatient (CLI) | payer MEDICARE, MEDICAID ==
[2021-04-18 12:57] LABS: BASO # 0.1 10^3/uL (0.0-0.2); BASO % 0.6 % (0.0-1.0); EOS # 0.1 10^3/uL (0.0-0.5); HEMATOCRIT 39.9 % (42.0-52.0); HEMOGLOBIN 12.5 g/dl (13.5-17.5); LYMPH # 1.8 10^3/uL (1.5-5.0); LYMPH % 17.8 % (24.0-44.0); MEAN CORPUSCULAR HGB CONC 31.3 g/dl (32.0-36.5); MEAN CORPUSCULAR VOLUME 83.1 fl (80.0-96.0); MONO # 0.8 10^3/uL (0.0-0.8); MONO % 7.9 % (2.0-8.0); NEUTROPHILS # 7.2 10^3/uL (1.5-8.5); NEUTROPHILS % 71.8 % (36.0-66.0); PLATELET COUNT, AUTOMATED 337 10^3/uL (150-450)
[2021-04-18 13:01] LABS: INR 1.01; PROTHROMBIN TIME 13.7 SECONDS (12.7-14.5)
[2021-04-18 13:02] LABS: PARTIAL THROMBOPLASTIN TIME 36.6 SECONDS (25.9-37.0)
[2021-04-18 13:28] LABS: ALBUMIN 3.4 GM/DL (3.2-5.2); ALT/SGPT 26 U/L (12-78); BILIRUBIN,TOTAL 0.3 MG/DL (0.2-1.0); BLOOD UREA NITROGEN 23 MG/DL (7-18); CALCIUM LEVEL 9.5 MG/DL (8.5-10.1); CARBON DIOXIDE LEVEL 29 MEQ/L (21-32); CHLORIDE LEVEL 103 MEQ/L (98-107); CREATININE FOR GFR 1.22 MG/DL (0.70-1.30); GLOMERULAR FILTRATION RATE > 60.0 (>56); GLUCOSE, FASTING 121 MG/DL (70-100); POTASSIUM SERUM 4.8 MEQ/L (3.5-5.1); SODIUM LEVEL 138 MEQ/L (136-145); TOTAL PROTEIN 7.7 GM/DL (6.4-8.2)
== END ==
LOC: M LAB 12:15
PROVIDERS: ATTEND Internal Medicine Pulmonary Disease
DX: R91.1 Solitary pulmonary nodule (principal); Z79.01 Long term (current) use of anticoagulants

== ENCOUNTER → 2021-05-13 | Outpatient (CLI) | payer MEDICARE, MEDICAID ==
[~2021-05-13] MED LIST changes: +BUSP10TA PO; -CLOP75TA2; +CLOP75TA2 PO; +ECOT81TA5 PO; +HYDR-4514 PO; -IPRA0.00; +IPRA0.00 INH; +METO1TAB87 PO; +PROC10TA5 PO; -VENTAER; +VENTAER INH
== END ==
LOC: M PLARAD 09:27
PROVIDERS: ATTEND Internal Medicine Pulmonary Disease
DX: R93.89 Abnormal findings on diagnostic imaging of other specified body structures (principal); R91.8 Other nonspecific abnormal finding of lung field
CPT/HCPCS: 78815; A9552

== ENCOUNTER 2021-05-29 07:26 | Day surgery (SDC) | payer MEDICARE, MEDICAID ==
[~2021-05-29] VITALS: Ht 180.3 cm; Wt 98.9 kg
[~2021-05-29 07:26] MED LIST changes: +ALBUTEROL SULFATE 2.5 MG/0.5 ML INH NEB SOLN INH ONE; -ECOT81TA5 PO; -HYDR-4514 PO; +LIDOCAINE 2% 100MG/5ML SDV (FOR ANES.) As Ordered ONE; +LIDOCAINE 4% INJ 5ML AMP INH ONE; +LR 1,000 ML IV ONE; +MIDAZOLAM INJ 2MG/2ML VIAL (J2250 PER 1MG) As Ordered ONE; -PROC10TA5 PO; +ROCURONIUM BROMIDE 50 MG/5 ML VIAL As Ordered ONE; +fentaNYL 100 MCG/2 ML INJECTION (J3010) As Ordered ONE; +propofoL 200 MG/20 ML VIAL As Ordered ONE
[2021-05-29] MEDS ORDERED: ECOT81TA5 PO (08:15)
[2021-05-29] MEDS ORDERED: CETACAINE SPRAY 5GM As Ordered ONE (09:13)
[2021-05-29] MEDS ORDERED: EPINEPHrine 1MG/10ML SYRINGE 1.5IN As Ordered ONE (09:14)
[2021-05-29] MEDS ORDERED: PHENYLephrine 500MCG 5ML (100MCG/ML) SYRINGE As Ordered ONE (09:49)
[2021-05-29] MEDS ORDERED: SUGAMMADEX SODIUM 500 MG/5 ML VIAL (BRIDION) As Ordered ONE (09:49)
[2021-05-29] MEDS ORDERED: dexameTHASONE 4 MG/ML 1ML VIAL (J1100 PER 1MG) As Ordered ONE (09:49)
[2021-05-29] MEDS ORDERED: ONDANSETRON 4MG/2ML VIAL As Ordered ONE (09:49)
[2021-05-29] MEDS ORDERED: THROMBIN SOLN 5,000 UNITS VIAL As Ordered ONE (10:27)
--- NOTE | 2021-05-29 10:50 | ROOR ---
Patient Name: Juan De La Garza Procedure Date: 05/29/2021 9:15 AM Date of : 1965 Admit Type: Outpatient Age: 56 Room: Main OR Note Status: Finalized Attending MD: Joyce Santos MD Procedure: Bronchoscopy Indications: Left upper lobe mass, Mediastinal adenopathy Providers: Joyce Santos MD (Doctor), LEIGHA HAN MD (1st Assisting Doctor) Referring MD: 1. NO/Unknown PCP 1. NO/Unknown PCP, Admin. (Referring MD) Requesting Physician: Medicines: General Anesthesia, Lidocaine 4% via nebulizer with Albuterol 2.5 mg, Cetacaine topical, Epinephrine 1 mg/10 mL topical 2 mL, Thrombin 5000 units Complications: No immediate complications. Estimated blood loss: Minimal Procedure: Pre-Anesthesia Assessment: - Prior to the procedure, a History and Physical was performed, and patient medications and allergies were reviewed. The patient's tolerance of previous anesthesia was also reviewed. The risks and benefits of the procedure and the sedation options and risks were discussed with the patient. All questions were answered, and informed consent was obtained. Prior Anticoagulants: The patient has taken Plavix (clopidogrel), last dose was 7 days prior to procedure. ASA Grade Assessment: III - A patient with severe systemic disease. After reviewing the risks and benefits, the patient was deemed in satisfactory condition to undergo the procedure. - Patient identification and proposed procedure were verified prior to the procedure by the physician, the nurse, the anesthesiologist, the painting machine operator and the product safety technician. The procedure was verified in the procedure room. The Bronchoscope was introduced through the mouth, via the endotracheal tube (the patient was intubated for the procedure) and advanced to the tracheobronchial tree of both lungs. The procedure was accomplished without difficulty. The patient tolerated the procedure well. Findings: The endotracheal tube is in good position. The visualized portion of the trachea is of normal caliber. The nora is sharp. The tracheobronchial tree was examined to at least the first subsegmental level. Right sided bronchial mucosa and anatomy are normal; there are no endobronchial lesions, and no secretions. On the left the left upper lobe and lingula mucosa appeared edematous and friable. There was extrinsic narrowing of the lingular segment. Brushings of a lingular endobronchial mucosa were obtained in the lingula segment of the left upper lobe with a cytology brush and sent for routine cytology. Transbronchial biopsies of a mass were performed in the lingula segment of the left upper lobe using forceps and sent for histopathology examination. The procedure was guided by fluoroscopy. Transbronchial biopsy technique was selected because the sampling site was not accessible using standard endoscopic (bronchoscopic) techniques. An endobronchial ultrasound endoscope was utilized in order to assist with fine needle aspiration in the left paratracheal area and in the subcarinal area. Transbronchial needle aspirations of a lymph node were performed in the left paratracheal area and in the subcarinal area using an Olympus EBUS-TBNA 21 gauge needle and sent for routine cytology. The procedure was guided by ultrasound. Transbronchial needle aspiration technique was selected because the sampling site was not visible endoscopically. Rapid On-Site Evaluation (AKANKSHA): Preliminary cytology of the lesions in the superior lingula segment of the left upper lobe, in the left paratracheal area and in the subcarinal area suggested the cellularity of the specimen was adequate. Impression: - Left upper lobe mass - Mediastinal adenopathy - The airway examination was normal. - Brushings were obtained. - Transbronchial lung biopsies were performed. - Endobronchial ultrasound was performed. - A transbronchial needle aspiration was performed. - Rapid On-Site Evaluation (AKANKSHA): Preliminary cytology of the lesion in the superior lingula segment of the left upper lobe, in the left paratracheal area and in the subcarinal area suggested the cellularity of the specimen was adequate. Recommendation: - Await test results. Procedure Code(s): --- Professional --- 21611, Bronchoscopy, rigid or flexible, including fluoroscopic guidance, when performed; with transbronchial needle aspiration biopsy(s), trachea, main stem and/or lobar bronchus(i) 94927, Bronchoscopy, rigid or flexible, including fluoroscopic guidance, when performed; with transbronchial lung biopsy(s), single lobe 09303, Bronchoscopy, rigid or flexible, including fluoroscopic guidance, when performed; with brushing or protected brushings 34617, Bronchoscopy, rigid or flexible, including fluoroscopic guidance, when performed; with transendoscopic endobronchial ultrasound (EBUS) during bronchoscopic diagnostic or therapeutic intervention(s) for peripheral lesion(s) (List separately in addition to code for primary procedure[s]) CPT copyright 2019 [employer]. All rights reserved. The codes documented in this report are preliminary and upon cargo handler review may be revised to meet current compliance requirements. Attending Participation: I personally performed the entire procedure. Joyce Santos MD 05/29/2021 10:50:18 AM LEIGHA HAN MD Number of Addenda: 0 Note Initiated On: 05/29/2021 9:15 AM
--- NOTE | 2021-05-29 11:03 | REP ---
INDICATION: POST OP IN PACU/ BRONCHOSCOPY. COMPARISON: 06/27/2020 latest prior TECHNIQUE: Portable FINDINGS: The technique utilized in obtaining the radiograph has magnified the cardiac silhouette and accentuated the interstitial markings. The cardiomediastinal silhouette is stable. There is a new abnormal opacity in the right upper and lower lobe regions. Lung tran are otherwise unchanged. The pleural angles remain sharp. There is no change in the osseous structures. IMPRESSION: New abnormal left lung opacity. Follow-up is recommended. <Electronically signed by Felipe Snowden > 05/29/21 1100
[2021-05-29] MEDS ORDERED: ONDANSETRON 4MG/2ML VIAL IV PRN (11:15)
[2021-05-29] MEDS ORDERED: fentaNYL 100 MCG/2 ML INJECTION (J3010) IV PRN (11:15)
[2021-05-29] MEDS ORDERED: LR 1,000 ML IV SCH (11:15)
[2021-05-29] MEDS ORDERED: oxyCODONE 5MG TAB PO PRN (11:15)
[2021-05-29 11:35] VITALS: BP 132/63
[2021-06-06] MEDS ORDERED: HYDR-4514 PO (13:26)
== END 2021-05-29 11:40 | disposition home or self-care (01) ==
LOC: M SDC 07:26
PROVIDERS: ATTEND Internal Medicine Pulmonary Disease
DX: C34.12 Malignant neoplasm of upper lobe, left bronchus or lung (principal); R59.0 Localized enlarged lymph nodes; I25.10 Atherosclerotic heart disease of native coronary artery without angina pectoris; I11.9 Hypertensive heart disease without heart failure; E78.5 Hyperlipidemia, unspecified; K21.9 Gastro-esophageal reflux disease without esophagitis; M54.9 Dorsalgia, unspecified; J84.10 Pulmonary fibrosis, unspecified; Z79.899 Other long term (current) drug therapy; Z79.82 Long term (current) use of aspirin; Z79.02 Long term (current) use of antithrombotics/antiplatelets; Z87.891 Personal history of nicotine dependence; Z95.5 Presence of coronary angioplasty implant and graft; I25.2 Old myocardial infarction
CPT/HCPCS: 31623; 31628; 31629; 31652; 31654; 71045; 76000; 88104; 88173; 88305; 88341; 88342; J1100; J2250; J2370; J2405; J3010; S2900

== ENCOUNTER → 2021-06-06 | Outpatient (CLI) | payer MEDICARE, MEDICAID ==
[~2021-06-06] MED LIST changes: -ALBUTEROL SULFATE 2.5 MG/0.5 ML INH NEB SOLN INH ONE; +ECOT81TA5 PO; +HYDR-4514 PO; -LIDOCAINE 2% 100MG/5ML SDV (FOR ANES.) As Ordered ONE; -LIDOCAINE 4% INJ 5ML AMP INH ONE; -LR 1,000 ML IV ONE; -MIDAZOLAM INJ 2MG/2ML VIAL (J2250 PER 1MG) As Ordered ONE; +PROC10TA5 PO; -ROCURONIUM BROMIDE 50 MG/5 ML VIAL As Ordered ONE; -fentaNYL 100 MCG/2 ML INJECTION (J3010) As Ordered ONE; -propofoL 200 MG/20 ML VIAL As Ordered ONE
== END ==
LOC: M ONCR 14:33
PROVIDERS: ATTEND General Practice
DX: C34.12 Malignant neoplasm of upper lobe, left bronchus or lung (principal); J44.9 Chronic obstructive pulmonary disease, unspecified; Z87.891 Personal history of nicotine dependence; Z79.899 Other long term (current) drug therapy

== ENCOUNTER → 2021-07-01 | Outpatient (CLI) | payer MEDICARE, MEDICAID ==
[~2021-07-01] MED LIST changes: -PROC10TA5 PO; +PROHANCE 279.3MG/ML 15ML VIAL ONE; +PROHANCE 279.3MG/ML 5ML VIAL ONE
== END ==
LOC: M PLAIMG 07:51
PROVIDERS: ATTEND Internal Medicine Hematology & Oncology
DX: C34.90 Malignant neoplasm of unspecified part of unspecified bronchus or lung (principal)
CPT/HCPCS: 70553; A9576

== ENCOUNTER → 2021-07-15 | Outpatient (RCR) | payer MEDICARE, MEDICAID ==
[~2021-07-15] MED LIST changes: +PROC10TA5 PO; -PROHANCE 279.3MG/ML 15ML VIAL ONE; -PROHANCE 279.3MG/ML 5ML VIAL ONE
== END ==
LOC: M ONCR 06-24 10:10
PROVIDERS: ATTEND General Practice
DX: C34.12 Malignant neoplasm of upper lobe, left bronchus or lung (principal)

== ENCOUNTER → 2021-08-12 | Outpatient (RCR) | payer MEDICARE, MEDICAID ==
[~2021-08-12] MED LIST changes: +TRIA1CR80 TOP
== END ==
LOC: M ONCR 07-16 09:58
PROVIDERS: ATTEND General Practice
DX: C34.12 Malignant neoplasm of upper lobe, left bronchus or lung (principal)

== ENCOUNTER 2021-08-13 08:47 | Outpatient (RCR) | payer MEDICARE, MEDICAID | END 2021-09-12 | LOC: M ONCR 08:47 | PROVIDERS: ATTEND General Practice | DX: C34.12 Malignant neoplasm of upper lobe, left bronchus or lung (principal) ==

== ENCOUNTER → 2021-10-02 | Outpatient (CLI) | payer MEDICARE, MEDICAID | LOC: M CARPUL 07:24 | PROVIDERS: ATTEND Internal Medicine Cardiovascular Disease | DX: R06.02 Shortness of breath (principal) ==

== ENCOUNTER → 2021-12-10 | Outpatient (CLI) | payer MEDICARE, MEDICAID ==
[~2021-12-10] MED LIST changes: +GASTROGRAFIN SOLUTION 30ML (Q9963) As Ordered ONE; +ISOVUE-370 76% 100ML VIAL As Ordered ONE
== END ==
LOC: M RAD 13:58
PROVIDERS: ATTEND Nurse Practitioner
DX: C34.90 Malignant neoplasm of unspecified part of unspecified bronchus or lung (principal)
CPT/HCPCS: 71260; 74177; Q9963; Q9967

== ENCOUNTER → 2022-02-19 | Outpatient (CLI) | payer MEDICARE, MEDICAID ==
[~2022-02-19] MED LIST changes: +AZIT-12 PO; -GASTROGRAFIN SOLUTION 30ML (Q9963) As Ordered ONE; -ISOVUE-370 76% 100ML VIAL As Ordered ONE; +PRED20TA PO
== END ==
LOC: M ONCR 10:04
PROVIDERS: ATTEND General Practice
DX: C34.12 Malignant neoplasm of upper lobe, left bronchus or lung (principal); J44.9 Chronic obstructive pulmonary disease, unspecified; Z77.090 Contact with and (suspected) exposure to asbestos; Z77.29 Contact with and (suspected) exposure to other hazardous substances; Z79.02 Long term (current) use of antithrombotics/antiplatelets; Z79.51 Long term (current) use of inhaled steroids; Z79.82 Long term (current) use of aspirin; Z79.811 Long term (current) use of aromatase inhibitors; Z79.891 Long term (current) use of opiate analgesic; Z87.891 Personal history of nicotine dependence; Z92.21 Personal history of antineoplastic chemotherapy; Z92.3 Personal history of irradiation

== ENCOUNTER → 2022-03-24 | Outpatient (CLI) | payer MEDICARE, MEDICAID ==
[~2022-03-24] MED LIST changes: +GASTROGRAFIN SOLUTION 30ML (Q9963) As Ordered ONE; +ISOVUE-370 76% 100ML VIAL As Ordered ONE
== END ==
LOC: M RAD 15:37
PROVIDERS: ATTEND Nurse Practitioner
DX: C34.90 Malignant neoplasm of unspecified part of unspecified bronchus or lung (principal)
CPT/HCPCS: 71260; 74177; Q9963; Q9967

== ENCOUNTER → 2022-04-25 | Outpatient (CLI) | payer MEDICARE, MEDICAID ==
[~2022-04-25] MED LIST changes: -GASTROGRAFIN SOLUTION 30ML (Q9963) As Ordered ONE; -ISOVUE-370 76% 100ML VIAL As Ordered ONE; +PROHANCE 279.3MG/ML 15ML VIAL ONE; +PROHANCE 279.3MG/ML 5ML VIAL ONE
== END ==
LOC: M PLARAD 07:36 → M PLAIMG 07:36
PROVIDERS: ATTEND Nurse Practitioner
DX: R51.9 Headache, unspecified (principal); C34.90 Malignant neoplasm of unspecified part of unspecified bronchus or lung
CPT/HCPCS: 70553; A9576

== ENCOUNTER → 2022-07-07 | Outpatient (CLI) | payer MEDICARE, MEDICAID ==
[~2022-07-07] MED LIST changes: +ISOVUE-370 76% 100ML VIAL As Ordered ONE; +MUCI600T31; -PROHANCE 279.3MG/ML 15ML VIAL ONE; -PROHANCE 279.3MG/ML 5ML VIAL ONE
== END ==
LOC: M RAD 09:18
PROVIDERS: ATTEND Nurse Practitioner
DX: C34.90 Malignant neoplasm of unspecified part of unspecified bronchus or lung (principal)
CPT/HCPCS: 71260; Q9967

== ENCOUNTER → 2022-09-24 | Outpatient (CLI) | payer MEDICARE, MEDICAID ==
[~2022-09-24] MED LIST changes: +GASTROGRAFIN SOLUTION 30ML As Ordered ONE
== END ==
LOC: M RAD 11:24
PROVIDERS: ATTEND Specialist
DX: C34.90 Malignant neoplasm of unspecified part of unspecified bronchus or lung (principal)
CPT/HCPCS: 71260; 74177; Q9963; Q9967

== ENCOUNTER → 2022-11-17 | Outpatient (CLI) | payer MEDICARE, MEDICAID ==
[~2022-11-17] MED LIST changes: -GASTROGRAFIN SOLUTION 30ML As Ordered ONE; -ISOVUE-370 76% 100ML VIAL As Ordered ONE
== END ==
LOC: M PLARAD 13:02
PROVIDERS: ATTEND Internal Medicine Medical Oncology
DX: C34.12 Malignant neoplasm of upper lobe, left bronchus or lung (principal)
CPT/HCPCS: 78815; A9552

== ENCOUNTER → 2024-01-28 | Outpatient (CLI) | payer MEDICARE, MEDICAID ==
[~2024-01-28] MED LIST changes: +ASPI81TA26 PO; +DULO1CAP5; +GUAI600T12; -RAMI1CAP22 PO; +RAMI2.5C42 PO
== END ==
LOC: M PLAIMG 09:24
PROVIDERS: ATTEND Internal Medicine Pulmonary Disease
DX: C34.12 Malignant neoplasm of upper lobe, left bronchus or lung (principal)

== ENCOUNTER 2024-12-23 15:13 | Emergency (ER) | payer MEDICARE, MEDICAID ==
[~2024-12-23] VITALS: Ht 180.3 cm; Wt 118.0 kg
[2024-12-23 16:05] VITALS: TEMP 97
[2024-12-23] MEDS ORDERED: TIZA2TA PO (16:31)
[2024-12-23 16:37] LABS: BASO # 0.0 10^3/uL (0.0-0.2); BASO % 0.5 % (0.0-1.0); EOS # 0.1 10^3/uL (0.0-0.5); EOS % 1.6 % (0.0-3.0); LYMPH # 1.5 10^3/uL (1.5-5.0); LYMPH % 19.6 % (24.0-44.0); MONO # 0.7 10^3/uL (0.0-0.8); MONO % 9.2 % (2.0-8.0); NEUTROPHILS # 5.3 10^3/uL (1.5-8.5); NEUTROPHILS % 68.5 % (36.0-66.0); PLATELET COUNT, AUTOMATED 207 10^3/uL (150-450)
[2024-12-23] MEDS ORDERED: ISOVUE-370 76% 100 ML VIAL As Ordered ONE (16:40)
[2024-12-23 16:51] LABS: INR 0.93
[2024-12-23] MEDS ORDERED: PROHANCE 279.3MG/ML 5ML VIAL As Ordered ONE (16:52)
[2024-12-23] MEDS ORDERED: PROHANCE 279.3MG/ML 15ML VIAL As Ordered ONE (16:52)
[2024-12-23 16:56] LABS: CPK CREATINE PHOSPHOKINASE 166.0 U/L (46-171)
[2024-12-23 16:57] LABS: ALT/SGPT 25.0 U/L (7.0-40); AST/SGOT 21.0 U/L (<34); CALCIUM LEVEL 9.0 MG/DL (8.3-10.6); CARBON DIOXIDE LEVEL 27.0 MMOL/L (20-31); CHLORIDE LEVEL 101.0 MMOL/L (98-107); CK-MB VALUE MASS 2.1 NG/ML (<3.6); CREATININE FOR GFR 1.05 MG/DL (0.70-1.30); GLOMERULAR FILTRATION RATE 81.3 (>49); MB/CK RELATIVE INDEX 1.26 (< OR =4); POTASSIUM SERUM 3.8 MMOL/L (3.5-5.1); SODIUM LEVEL 139.0 MMOL/L (136-145)
[2024-12-23 16:58] LABS: FREE T4 1.03 NG/DL (0.89-1.76)
[2024-12-23 18:10] LABS: CK-MB VALUE MASS 3.3 NG/ML (<3.6)
[2024-12-23 18:11] LABS: CPK CREATINE PHOSPHOKINASE 167.0 U/L (46-171); MB/CK RELATIVE INDEX 1.97 (< OR =4)
[2024-12-23 22:20] VITALS: O2SAT 94
[2024-12-23] MEDS ORDERED: SIMV80TA13 PO (22:24)
[2024-12-23] MEDS ORDERED: ACET-897 PO (22:24)
[2024-12-23] MEDS ORDERED: FLUT1BLS8 INH (22:24)
[2024-12-23] MEDS ORDERED: HOME MED LIST COMPLETE! XX SCH (22:25)
[2024-12-23 22:29] VITALS: BP 173/72
[2024-12-23] MEDS: SODIUM CHLORIDE 0.9% INJ 10 ML SYR IV PRN (22:42)
[2024-12-23] MEDS: HEPARIN LOCK FLUSH 100 UNITS/ML 3 ML SYRINGE IV PRN (22:42)
== END 2024-12-23 22:48 | disposition home or self-care (01) ==
LOC: M ED 15:13
DX: R51.9 Headache, unspecified (principal); R20.2 Paresthesia of skin; S16.1XXA Strain of muscle, fascia and tendon at neck level, initial encounter; Y92.9 Unspecified place or not applicable; Y93.9 Activity, unspecified; Y99.9 Unspecified external cause status; I25.2 Old myocardial infarction; I25.119 Atherosclerotic heart disease of native coronary artery with unspecified angina pectoris; I10 Essential (primary) hypertension; F12.10 Cannabis abuse, uncomplicated; F10.10 Alcohol abuse, uncomplicated; Z79.1 Long term (current) use of non-steroidal anti-inflammatories (NSAID); Z79.51 Long term (current) use of inhaled steroids; Z79.899 Other long term (current) drug therapy; Z79.01 Long term (current) use of anticoagulants
CPT/HCPCS: 70450; 70496; 70498; 70553; 71045; 72125; 72141; 80047; 80048; 80076; 82550; 82553; 83690; 83880; 84439; 84443; 84484; 85025; 85610; 85730; 93005; 93041; 94760; 96374; 99285; A9576; J1642; Q9967

== ENCOUNTER → 2025-02-23 | Outpatient (CLI) | payer MEDICARE, MEDICAID ==
[~2025-02-23] MED LIST changes: +ACET-897 PO; +FLUT1BLS8 INH; +SIMV80TA13 PO; +TIZA2TA PO
== END ==
LOC: M RAD 13:02
PROVIDERS: ATTEND Internal Medicine Pulmonary Disease
DX: C34.12 Malignant neoplasm of upper lobe, left bronchus or lung (principal); I25.10 Atherosclerotic heart disease of native coronary artery without angina pectoris; J47.9 Bronchiectasis, uncomplicated; R91.8 Other nonspecific abnormal finding of lung field